=== PATIENT | female | born 1995 | race Caucasian/White ===

== ENCOUNTER 2024-01-31 00:15 | Inpatient (IN) | payer MEDICAID, SELFPAY ==
--- NOTE | 2024-01-31 02:35 | PC.ADMIT ---
PT IS A 28 YEAR OLD, K[place]AK[place] SPEAKING, , NON-BINARY INDIVIDUAL. THEY/THEM PRONOUNS. PT IS A SECTION 12B ON 15 MINUTE CHECKS. NOT APPROPRIATE FOR GROUP AT THIS TIME. PT WAS UNABLE TO ACCURATELY ANSWER ANY QUESTIONS OR PARTICIPATE IN ADMISSION DUE TO MENTAL STATUS. PT SPEECH IS DISORGANIZED AND NONSENSICAL.UPON ARRIVING TO THE UNIT, THEY REFUSED TO GET OFF THE STRETCHER UNLESS BROUGHT TO THEIR ROOM. ONCE THEY GOT TO THEIR ROOM, THEY COVERED THEIR HEAD WITH A BLANKET AND THREW THEMSELVES ONTO THE BED. PT IS DISHEVELED APPEARING. THEY HAVE A PIECE OF RIPPED PAPER TOWEL ON THEIR HEAD A HEADBAND. PT IS MALODOROUS, SMELLING LIKE URINE. THEY WERE TRANSFERRED TO [facility] AFTER BEING BROUGHT TO [email or web address] FOR THROWING ROCKS AT [employer]. PTS INSIGHT AND JUDGMENT ARE POOR. UNKNOWN SLEEPING AND EATING HABITS. REFUSED NRT. REFUSED FLU VACCINE. PT HAS HAD MULTIPLE HOSPITALIZATIONS IN THE PAST.SAFETY TOOL AND LEGALS STILL NEED TO BE COMPLETED.
[2024-01-31 07:56] VITALS: BP 142/100; PULSE 122; RESP 18; TEMP 36.5; O2SAT 95
--- NOTE | 2024-01-31 08:22 | HO.PSYADMNOT ---
HPI Date of Service: 01/31/24 Chief Complaint: F31.2, F33.2, F41.1 Sources of Information: patient interviewed, chart reviewed and crisis/core team assessment reviewed HPI Subjective Notes: Byrd Warning, Conditional Voluntary and Section 12B Narrative: Patient is a 28-year-old biological female (they/them) with history of bipolar disorder who presents with manic and disruptive behaviors in the community. Patient is floridly manic on the unit, disrobing in the hallway, dancing, throwing her panties, yelling and making noises. She was willing to take her home medication of Abilify, which helped her sleep and afterwards, though still manic, was able to engage in discussion. She says I do not want to be here. Patient says that in the community, she was not throwing rocks at [employer] workers, but was throwing items, lipstick and a receipt, saying she was trying to be sexy, hot... And something about fairies. Patient rambling about her Boy genius philosophical energy, healing, renewed trans revelation about herself... Patient reports that in the past when she had such episodes she would get paranoid and have auditory hallucinations; she was treated with Abilify in the past which helped however this takes away her creative energy and on it she would no longer do art. She has been off of it for several months. She feels that this current episode is welcomed, expanding her thoughts and something through the effect of spreading energy. Patient agrees that expressing herself in this way in public is not always welcomed and she thus agrees to continue with Abilify; she would like it lowered to see if at a lower dose it is helpful but will not take away her creative energy. Report from crisis says patient was disorganized, nonsensical, and throwing rocks at the [employer] workers. Past Psychiatric History: Difficult to ascertain due to scott; maybe 1 past admission; trial of Abilify, Risperdal (caused galactorrhea) and Vraylar Medical Evaluation Reviewed: Hospitalist Alejandra Pending [facility] Medical History (Updated 01/31/24 @ 17:55 by Warner Gay MD) Bipolar I disorder Family History: Deferred due to patient's ability to engage Social History: Has partner for the past 8 months named Andrew Substance History: Denies Trauma History: Defer Diagnostics Vital Signs (24Hr): Vital Signs - 24 hr 01/31/24 07:56 Temperature 97.7 F Pulse Rate 122 H Respiratory Rate 18 Blood Pressure 142/100 H Pulse Oximetry 95 Oxygen Delivery Method Room Air BMI result Body Mass Index 30.0 Meds/Allergies Meds Home Medications ?Medication ?Instructions ?Recorded ?Confirmed ?Type aripiprazole 20 mg tablet 20 mg PO DAILY 01/31/24 01/31/24 History dicyclomine 10 mg capsule 10 mg PO TID 01/31/24 01/31/24 History famotidine 40 mg tablet 40 mg PO DAILY 01/31/24 01/31/24 History hydroxyzine HCl 50 mg tablet 50 mg PO QID PRN Anxiety 01/31/24 01/31/24 History lamotrigine 200 mg tablet 200 mg PO DAILY 01/31/24 01/31/24 History levothyroxine 50 mcg tablet 50 mcg PO DAILY 01/31/24 01/31/24 History Allergies Allergies Allergy/AdvReac Type Severity Reaction Status Date / Time cephalexin [From Keflex] Allergy Hives Verified 01/31/24 01:43 codeine Allergy Nausea and Verified 01/31/24 01:43 Vomiting Mental Status Exam Mental Status Exam Narrative: Pt is alert and oriented; behavior is manic, exuberant, loud and intermittently disorganized; patient is not in distress; dressed in casual attire, disheveled, malodorous; mood is described as good and affect expansive; eye contact appropriate; Speech is hyperverbal and pressured, intermittently loud; psychomotor agitation present; thought process can be goal directed but is quite distracted and tangential; Thought content is on spirit, trans energy ; with grandiosity; denies any SI/HI. Denies AVH Patients insight and judgment impaired Assessment & Plan Assessment & Plan (1) Bipolar I disorder: Status: Acute Code(s): F31.9 - Bipolar disorder, unspecified Plan Patient is a 28-year-old biological female (they/them) with history of bipolar disorder who presents with manic and disruptive behaviors in the community. Patient is floridly manic on the unit, disorganized, disrobing in the hallway, dancing, throwing her panties, yelling and making noises. She was willing to take her home medication of Abilify, which helped her sleep and afterwards, though still manic, was able to engage in discussion. She says I do not want to be here. Patient says that in the community, she was not throwing rocks at [employer] workers, but was throwing items, lipstick and a receipt, saying she was trying to be sexy, hot... And something about fairies. Patient rambling about her Boy genius philosophical energy, healing, renewed trans revelation about herself... Patient reports that in the past when she had such episodes she would get paranoid and have auditory hallucinations; she was treated with Abilify in the past which helped however this takes away her creative energy and on it she would no longer do art. She has been off of it for several months. She feels that this current episode is welcomed, expanding her thoughts and something through the effect of spreading energy. Patient agrees that expressing herself in this way in public is not always welcomed and she thus agrees to continue with Abilify; she would like it lowered to see if at a lower dose it is helpful but will not take away her creative energy. -Report from crisis says patient was disorganized, nonsensical, and throwing rocks at the [employer] workers. Impression: Patient is clearly manic; she is happy though because this episode has not included any auditory hallucinations or paranoid delusions which she very much did not like. She agrees to restart Abilify though at a slightly lower dose, 15 mg. She says she will try to demonstrate appropriate behaviors as she wants to discharge christopher. Reviewed legal status which patient understands and she remains on a 12 B, not wanting to sign it Plan: 12 B Continue Abilify 15 mg daily; patient normally on 20 but feels it is too high and makes her dull Patient educated on: diagnosis and medication risk/benefits Informed Consent: understands, does not understand and further education needed Reason for continued inpatient stay Substantial Risk for: rapid decompensation Statement Statement: I have reviewed the history and physical and performed a pertinent examination on my patient. No changes have occurred unless specified. If the History and Physical was not performed prior to admission, the Hospitalist's service will be consulted for completing the admission physical. Time Spent With Patient Time: Total time managing care of this patient today ____ minutes.
[2024-01-31] MEDS: OLANZapine 5 MG TABLET PO (09:12)
[2024-01-31] MEDS: Famotidine 20 MG TABLET 40 MG PO (09:12)
[2024-01-31] MEDS: ARIPiprazole 20 MG TABLET PO (09:12)
--- NOTE | 2024-01-31 13:31 | HO.PM.IMCN ---
History of Present Illness Data of Consult Service Date: 01/31/24 Primary Care Provider: Annalise Ortez NP HPI Reason for consult: Admission H&P Pt is a 28-year-old nonbinary assigned female at with a PMH significant for?hypothyroidism, MDD, ARNOL, and bipolar disorder who is admitted to M5 psychiatry unit for disorganized behavior. Patient was initially brought to [facility] ED after police department picked them up for throwing rocks at [employer] workers. While on the unit here patient has been actively manic, refusing to participate in treatment and with poor insight and judgment. Patient has been moved to the group room to rest in seclusion. Medical consult for admission H&P. Pt initially reluctant to conduct interview and exam, but eventually agrees to participate. Is actively manic and speaking nonsensically and incoherently at times. Unable to provide a clear PMH. Reports has ?lots of heart stuff? and when asked to clarify reports their heart is ?like a pin cushion?. Patient denies any acute medical complaints at this time. Review of Systems Review of Systems: Patient actively manic at time of interview and exam, though they deny any acute medical complaints at this time [facility] Medical History (Updated 01/31/24 @ 19:45 by JERRELL Navarro) Bipolar I disorder Social History Household Members: Unknown / Unable to assess Housing: Unknown / Unable to assess Do you presently have visiting nurse or other home services: No Patient Tobacco Use Status: Refuse Tobacco use screen Patient Interested in Nicotine Replacement: No Patient Given Instructions on How to Stop Smoking: No Second Hand Smoke Exposure: No Use of substances other than those prescribed or required for medical reasons: Refusing to respond Currently Displaying Signs/Symptoms of Drug Intoxication Withdrawal: No Any prior treatment program specific to substance use: No Advance Directives: No Advance Directives Information Provided: No Do you have thoughts of harming others: None Do you have a plan to hurt others: No Plan Recently lost weight without trying: Unsure Eating poorly because of decreased appetite: Yes Nutrition Risks: No Nutritional Risk Patient : No : No Poor oral hygiene: No Meds Allergies Allergy/AdvReac Type Severity Reaction Status Date / Time cephalexin [From Keflex] Allergy Hives Verified 01/31/24 01:43 codeine Allergy Nausea and Verified 01/31/24 01:43 Vomiting Active Medications: Current Medications Acetaminophen (Acetaminophen 325 Mg Tablet) 650 mg PO Q6H PRN PRN Reason: Headache/Pain Mild Scale (1-3) Al Hydroxide/Mg Hydroxide (Magnesium Hydrox/Alum Hydrox 30 Ml Oral.Susp) 30 ml PO Q6H PRN PRN Reason: Heartburn/Nausea Aripiprazole (Aripiprazole 20 Mg Tablet) 20 mg PO DAILY [facility] Last Admin: 01/31/24 09:12 Dose: 20 mg Famotidine (Famotidine 20 Mg Tablet) 40 mg PO DAILY [facility] Last Admin: 01/31/24 09:12 Dose: 40 mg Hydroxyzine HCl (Hydroxyzine Hcl 50 Mg Tablet) 50 mg PO QID PRN PRN Reason: Anxiety Magnesium Hydroxide (Milk Of Magnesia 30 Ml Oral.Susp) 30 ml PO DAILY PRN PRN Reason: Constipation Nicotine (Nicotine 21 Mg Patch.Td24) 21 mg TRANSDERMA DAILY PRN PRN Reason: smoking cessation Nicotine Polacrilex (Nicotine Polacrilex 2 Mg Gum) 4 mg BUCCAL Q2H PRN PRN Reason: Nicotine Cravings Olanzapine (Olanzapine 5 Mg Tablet) 5 mg PO TID PRN PRN Reason: agitation Last Admin: 01/31/24 09:12 Dose: 5 mg Trazodone HCl (Trazodone Hcl 50 Mg Tablet) 50 mg PO BEDTIME MRX1 PRN PRN Reason: Insomnia Home Medications ?Medication ?Instructions ?Recorded ?Confirmed ?Last Taken ?Type aripiprazole 20 mg tablet 20 mg PO DAILY 01/31/24 01/31/24 Unknown History dicyclomine 10 mg capsule 10 mg PO TID 01/31/24 01/31/24 Unknown History famotidine 40 mg tablet 40 mg PO DAILY 01/31/24 01/31/24 Unknown History hydroxyzine HCl 50 mg tablet 50 mg PO QID PRN Anxiety 01/31/24 01/31/24 Unknown History lamotrigine 200 mg tablet 200 mg PO DAILY 01/31/24 01/31/24 Unknown History levothyroxine 50 mcg tablet 50 mcg PO DAILY 01/31/24 01/31/24 Unknown History Physical Exam Vital Signs and Narrative: Vital Signs: Last Vital Signs Temp 97.7 F 01/31/24 07:56 Pulse 122 H 01/31/24 07:56 Resp 18 01/31/24 07:56 BP 142/100 H 01/31/24 07:56 Pulse Ox 95 01/31/24 07:56 O2 Del Method Room Air 01/31/24 07:56 BMI result Body Mass Index 30.0 General: Alert, actively manic, no acute distress Resp: CTA bilaterally CVS: S1, S2, RRR GI: +BS, NT, no distention Skin: Warm, dry Neuro: Cranial nerves II-XII grossly intact bilaterally. Motor grossly intact bilaterally Extremities: No edema Psych: Actively manic but cooperative Assessment and Plan (1) Medical clearance for psychiatric admission: Status: Acute Plan Pt is a 28-year-old nonbinary assigned female at with a PMH significant for?hypothyroidism, MDD, ARNOL, and bipolar disorder who is admitted to psychiatry unit for disorganized behavior. Patient was initially brought to [facility] ED after police department picked them up for throwing rocks at [employer] workers. While on the unit here patient has been actively manic, refusing to participate in treatment and with poor insight and judgment. Patient has been moved to the group room to rest in seclusion. Medical consult for admission H&P. Mood disorder Plan as per Psychiatry Hypothyroidism Continue levothyroxine GERD Continue famotidine Patient is otherwise without acute medical complaints or known chronic medical conditions. Will sign off for now. Thank you for allowing us to participate in the care of this patient. Please re-consult if any acute issue or need arises.
[2024-01-31] MEDS: Nicotine Polacrilex 2 MG GUM 4 MG BUCCAL (17:19)
[2024-01-31 20:00] VITALS: BP 136/75; PULSE 103; RESP 16; TEMP 35.9; O2SAT 97
[2024-02-01 07:54] VITALS: BP 138/87; PULSE 121; RESP 16; TEMP 36.4; O2SAT 98
[2024-02-01] MEDS: Famotidine 20 MG TABLET 40 MG PO (09:00)
[2024-02-01] MEDS: ARIPiprazole 15 MG TABLET PO (09:00)
[2024-02-01] MEDS: OLANZapine 5 MG TABLET PO (09:01)
[2024-02-01] MEDS: Nicotine 21 MG PATCH.TD24 TRANSDERMA (09:25)
[2024-02-01] MEDS: Nicotine Polacrilex 2 MG GUM 4 MG BUCCAL ×3 (10:46→17:44)
--- NOTE | 2024-02-01 15:18 | HO.PSYCHPN ---
Subjective Subjective Date of Service: 02/01/24 Reason For Visit: F31.2, F33.2, F41.1 Interim History: Remains disorganized and euphoric and manic although hasn't been disrobing. She was seen in her room. I wish I could have a joint with my girlfriend right now. She says she is feeling out from my darkest place. Feels the Abilify is helpful I will try it when I go home . She is pressured. Mood is elated I'm very calm... . Hyperverbal. Tangential. Review of Systems Review of Systems Patient actively manic at time of interview and exam, though they deny any acute medical complaints at this time Mental Status Exam Mental Status Exam Narrative: Pt is alert and oriented; behavior is manic, exuberant, loud and intermittently disorganized; patient is not in distress; dressed in casual attire, disheveled, malodorous; mood is described as good and affect expansive; eye contact appropriate; Speech is hyperverbal and pressured, intermittently loud; psychomotor agitation present; thought process can be goal directed but is quite distracted and tangential; Thought content is on spirit, trans energy ; with grandiosity; denies any SI/HI. Denies AVH Patients insight and judgment impaired Diagnostics Vital Signs (24Hr): Vital Signs - 24 hr 01/31/24 20:00 02/01/24 07:54 Temperature 96.6 F L 97.5 F Pulse Rate 103 H 121 H Respiratory Rate 16 16 Blood Pressure 136/75 138/87 Pulse Oximetry 97 98 Oxygen Delivery Method Room Air Room Air BMI result Body Mass Index 30.0 Medications Medications Current Medications Acetaminophen (Acetaminophen 325 Mg Tablet) 650 mg PO Q6H PRN PRN Reason: Headache/Pain Mild Scale (1-3) Al Hydroxide/Mg Hydroxide (Magnesium Hydrox/Alum Hydrox 30 Ml Oral.Susp) 30 ml PO Q6H PRN PRN Reason: Heartburn/Nausea Aripiprazole (Aripiprazole 15 Mg Tablet) 15 mg PO DAILY [facility] Last Admin: 02/01/24 09:00 Dose: 15 mg Famotidine (Famotidine 20 Mg Tablet) 40 mg PO DAILY [facility] Last Admin: 02/01/24 09:00 Dose: 40 mg Hydroxyzine HCl (Hydroxyzine Hcl 50 Mg Tablet) 50 mg PO QID PRN PRN Reason: Anxiety Magnesium Hydroxide (Milk Of Magnesia 30 Ml Oral.Susp) 30 ml PO DAILY PRN PRN Reason: Constipation Nicotine (Nicotine 21 Mg Patch.Td24) 21 mg TRANSDERMA DAILY PRN PRN Reason: smoking cessation Last Admin: 02/01/24 09:25 Dose: 21 mg Nicotine Polacrilex (Nicotine Polacrilex 2 Mg Gum) 4 mg BUCCAL Q2H PRN PRN Reason: Nicotine Cravings Last Admin: 02/01/24 14:12 Dose: 4 mg Olanzapine (Olanzapine 5 Mg Tablet) 5 mg PO TID PRN PRN Reason: agitation Last Admin: 02/01/24 09:01 Dose: 5 mg Trazodone HCl (Trazodone Hcl 50 Mg Tablet) 50 mg PO BEDTIME MRX1 PRN PRN Reason: Insomnia Allergies Allergies Allergy/AdvReac Type Severity Reaction Status Date / Time cephalexin [From Keflex] Allergy Hives Verified 01/31/24 01:43 codeine Allergy Nausea and Verified 01/31/24 01:43 Vomiting Assessment & Plan Assessment & Plan (1) Medical clearance for psychiatric admission: Status: Acute Code(s): Z00.8 - Encounter for other general examination (2) Bipolar I disorder: Status: Acute Code(s): F31.9 - Bipolar disorder, unspecified Assessment and Plan: Patient is a 28-year-old biological female (they/them) with history of bipolar disorder who presents with manic and disruptive behaviors in the community. Patient is floridly manic on the unit, disorganized, disrobing in the hallway, dancing, throwing her panties, yelling and making noises. She was willing to take her home medication of Abilify, which helped her sleep and afterwards, though still manic, was able to engage in discussion. She says I do not want to be here. Patient says that in the community, she was not throwing rocks at [employer] workers, but was throwing items, lipstick and a receipt, saying she was trying to be sexy, hot... And something about fairies. Patient rambling about her Boy genius philosophical energy, healing, renewed trans revelation about herself... Patient reports that in the past when she had such episodes she would get paranoid and have auditory hallucinations; she was treated with Abilify in the past which helped however this takes away her creative energy and on it she would no longer do art. She has been off of it for several months. She feels that this current episode is welcomed, expanding her thoughts and something through the effect of spreading energy. Patient agrees that expressing herself in this way in public is not always welcomed and she thus agrees to continue with Abilify; she would like it lowered to see if at a lower dose it is helpful but will not take away her creative energy. -Report from crisis says patient was disorganized, nonsensical, and throwing rocks at the [employer] workers. Impression: Patient is clearly manic; she is happy though because this episode has not included any auditory hallucinations or paranoid delusions which she very much did not like. She agrees to restart Abilify though at a slightly lower dose, 15 mg. She says she will try to demonstrate appropriate behaviors as she wants to discharge christopher. Reviewed legal status which patient understands and she remains on a 12 B, not wanting to sign it Plan: 12 B Continue Abilify 15 mg daily; patient normally on 20 but feels it is too high and makes her dull 01/31: Continue current management and treatment plan. Plan Pt is a 28-year-old nonbinary assigned female at with a PMH significant for?hypothyroidism, MDD, ARNOL, and bipolar disorder who is admitted to M5 psychiatry unit for disorganized behavior. Patient was initially brought to [facility] ED after police department picked them up for throwing rocks at [employer] workers. While on the unit here patient has been actively manic, refusing to participate in treatment and with poor insight and judgment. Patient has been moved to the group room to rest in seclusion. Medical consult for admission H&P. Mood disorder Plan as per Psychiatry Hypothyroidism Continue levothyroxine GERD Continue famotidine Patient is otherwise without acute medical complaints or known chronic medical conditions. Will sign off for now. Thank you for allowing us to participate in the care of this patient. Please re-consult if any acute issue or need arises. Reason for continued inpatient stay Substantial Risk for: inability to function and rapid decompensation Time Spent With Patient Time: Total time managing care of this patient today ____ minutes.
[2024-02-01] MEDS: Lactase TABLET 1 TAB PO (17:44)
[2024-02-01] MEDS: Magnesium Hydrox/Alum Hydrox 30 ML ORAL.SUSP PO (17:44)
[2024-02-01 20:00] VITALS: BP 148/84; PULSE 109; RESP 18; TEMP 36.7; O2SAT 98
[2024-02-02] MEDS: OLANZapine 5 MG TABLET PO (00:43)
[2024-02-02] MEDS: hydrOXYzine HCL 50 MG TABLET PO ×3 (00:43→23:15)
[2024-02-02] MEDS: Nicotine Polacrilex 2 MG GUM 4 MG BUCCAL ×5 (00:43→21:14)
[2024-02-02] MEDS: diphenhydrAMINE HCL 25 MG CAPSULE 50 MG PO (02:03)
[2024-02-02] MEDS: LORazepam 1 MG TABLET 2 MG PO (02:04)
[2024-02-02] MEDS: HaloperidoL 5 MG TABLET PO (02:05)
--- NOTE | 2024-02-02 02:41 | PC.NURSE ---
This patient became agitated at approximately 2200. They were noted to be apparently making gestures toward peers in the kitchen area, whilst they were outside of the kitchen windows, and had to be redirected repeatedly. They were swearing loudly at times when redirection occurred. Around 2300, the patient began balling up papers and throwing them into the nurse's station, and repeatedly asked for various things (a radio, for staff to play her music, copies of her current medical charts for this admission, colored pencils, etc) and was upset when their requests could not be satisfied. At approximately 0030, they threw a full pitcher of ice water down the (empty) jacobs and starting telling staff you suck, you guys are dicks! Fuck you, and you, and you! This continued, so this proposal manager writer ayan texted the on-call requesting PRNs as the patient had already had Zyprexa and Atarax to no effect. at home independent call center agent Dr Hector Patel ordered a one time PO dose of 50 mg Benedryl, 5 mg of Haldol, and 2 mg of Ativan. The patient took the Benedryl, Haldol, but requested only 1 mg of the Ativan. This was administered to good effect, as the patient appeared to be asleep by 0248. At the time of this writing, they are in bed with eyes closed and regular respirations.
[2024-02-02] MEDS: Famotidine 20 MG TABLET 40 MG PO (08:41)
[2024-02-02] MEDS: Lactase TABLET 1 TAB PO ×2 (08:42→11:24)
[2024-02-02] MEDS: ARIPiprazole 15 MG TABLET PO (08:42)
[2024-02-02] MEDS: Nicotine 21 MG PATCH.TD24 TRANSDERMA (08:43)
--- NOTE | 2024-02-02 09:43 | P.PNPSI_ITS ---
Subjective Subjective Date of Service: 02/02/24 Reason For Visit: F31.2, F33.2, F41.1 Interim History: Increasingly disorganized and agitated. Last night required PRN Haldol and Ativan with little effect. This morning yelling, agitated, saying they are praying to the garcia, lifting their shirt, smearing banana on a window, pacing. Taking Abilify. Hyperverbal. Tangential. Review of Systems Review of Systems Patient actively manic at time of interview and exam, though they deny any acute medical complaints at this time Mental Status Exam Mental Status Exam Narrative: Pt is alert and oriented; behavior is manic, exuberant, loud and intermittently disorganized; patient is not in distress; dressed in casual attire, disheveled, malodorous; mood is angry and affect expansive irritable agitated; eye contact appropriate; Speech is hyperverbal and pressured, intermittently loud; psychomotor agitation present; thought process can be goal directed but is quite distracted and tangential; Thought content is disorganized; with grandiosity; denies any SI/HI. Denies AVH. Patients insight and judgment impaired Diagnostics Vital Signs (24Hr): Vital Signs - 24 hr 02/01/24 20:00 Temperature 98.0 F Pulse Rate 109 H Respiratory Rate 18 Blood Pressure 148/84 H Pulse Oximetry 98 Oxygen Delivery Method Room Air BMI result Body Mass Index 30.0 Medications Medications Current Medications Acetaminophen (Acetaminophen 325 Mg Tablet) 650 mg PO Q6H PRN PRN Reason: Headache/Pain Mild Scale (1-3) Al Hydroxide/Mg Hydroxide (Magnesium Hydrox/Alum Hydrox 30 Ml Oral.Susp) 30 ml PO Q6H PRN PRN Reason: Heartburn/Nausea Last Admin: 02/01/24 17:44 Dose: 30 ml Aripiprazole (Aripiprazole 15 Mg Tablet) 15 mg PO DAILY DAYANA Last Admin: 02/02/24 08:42 Dose: 15 mg Chlorpromazine HCl (Chlorpromazine Hcl 25 Mg Tablet) 50 mg PO TID PRN PRN Reason: psychosis Famotidine (Famotidine 20 Mg Tablet) 40 mg PO DAILY DAYANA Last Admin: 02/02/24 08:41 Dose: 40 mg Hydroxyzine HCl (Hydroxyzine Hcl 50 Mg Tablet) 50 mg PO QID PRN PRN Reason: Anxiety Last Admin: 02/02/24 00:43 Dose: 50 mg Lactase (Lactase Tablet) 1 tab PO TIDWM DAYANA Last Admin: 02/02/24 08:42 Dose: 1 tab Magnesium Hydroxide (Milk Of Magnesia 30 Ml Oral.Susp) 30 ml PO DAILY PRN PRN Reason: Constipation Nicotine (Nicotine 21 Mg Patch.Td24) 21 mg TRANSDERMA DAILY PRN PRN Reason: smoking cessation Last Admin: 02/02/24 08:43 Dose: 21 mg Nicotine Polacrilex (Nicotine Polacrilex 2 Mg Gum) 4 mg BUCCAL Q2H PRN PRN Reason: Nicotine Cravings Last Admin: 02/02/24 00:43 Dose: 4 mg Olanzapine (Olanzapine 5 Mg Tablet) 5 mg PO TID PRN PRN Reason: agitation Last Admin: 02/02/24 00:43 Dose: 5 mg Trazodone HCl (Trazodone Hcl 50 Mg Tablet) 50 mg PO BEDTIME MRX1 PRN PRN Reason: Insomnia Allergies Allergies Allergy/AdvReac Type Severity Reaction Status Date / Time cephalexin [From Keflex] Allergy Hives Verified 01/31/24 01:43 codeine Allergy Nausea and Verified 01/31/24 01:43 Vomiting Assessment & Plan Assessment & Plan (1) Medical clearance for psychiatric admission: Status: Acute Code(s): Z00.8 - Encounter for other general examination (2) Bipolar I disorder: Status: Acute Code(s): F31.9 - Bipolar disorder, unspecified Assessment and Plan: Patient is a 28-year-old biological female (they/them) with history of bipolar disorder who presents with manic and disruptive behaviors in the community. Patient is floridly manic on the unit, disorganized, disrobing in the hallway, dancing, throwing her panties, yelling and making noises. She was willing to take her home medication of Abilify, which helped her sleep and afterwards, though still manic, was able to engage in discussion. She says I do not want to be here. Patient says that in the community, she was not throwing rocks at [employer] workers, but was throwing items, lipstick and a receipt, saying she was trying to be sexy, hot... And something about fairies. Patient rambling about her Boy genius philosophical energy, healing, renewed trans revelation about herself... Patient reports that in the past when she had such episodes she would get paranoid and have auditory hallucinations; she was treated with Abilify in the past which helped however this takes away her creative energy and on it she would no longer do art. She has been off of it for several months. She feels that this current episode is welcomed, expanding her thoughts and something through the effect of spreading energy. Patient agrees that expressing herself in this way in public is not always welcomed and she thus agrees to continue with Abilify; she would like it lowered to see if at a lower dose it is helpful but will not take away her creative energy. -Report from crisis says patient was disorganized, nonsensical, and throwing rocks at the [employer] workers. Impression: Patient is clearly manic; she is happy though because this episode has not included any auditory hallucinations or paranoid delusions which she very much did not like. She agrees to restart Abilify though at a slightly lower dose, 15 mg. She says she will try to demonstrate appropriate behaviors as she wants to discharge christopher. Reviewed legal status which patient understands and she remains on a 12 B, not wanting to sign it Plan: 12 B Continue Abilify 15 mg daily; patient normally on 20 but feels it is too high and makes her dull 01/31: Continue current management and treatment plan. 02/01: Thorazine 50 mg PRN added. Consider Depakote if patient agreeable. Plan Pt is a 28-year-old nonbinary assigned female at with a PMH significant for?hypothyroidism, MDD, ARNOL, and bipolar disorder who is admitted to [facility] psychiatry unit for disorganized behavior. Patient was initially brought to [facility] ED after police department picked them up for throwing rocks at [employer] workers. While on the unit here patient has been actively manic, refusing to participate in treatment and with poor insight and judgment. Patient has been moved to the group room to rest in seclusion. Medical consult for admission H&P. Mood disorder Plan as per Psychiatry Hypothyroidism Continue levothyroxine GERD Continue famotidine Patient is otherwise without acute medical complaints or known chronic medical conditions. Will sign off for now. Thank you for allowing us to participate in the care of this patient. Please re-consult if any acute issue or need arises. Reason for continued inpatient stay Substantial Risk for: inability to function and rapid decompensation Time Spent With Patient Time: Total time managing care of this patient today ____ minutes.
[2024-02-02 19:50] VITALS: BP 138/88; PULSE 103; RESP 18; TEMP 36.3; O2SAT 97
[2024-02-02] MEDS: Acetaminophen 325 MG TABLET 650 MG PO (20:08)
[2024-02-02] MEDS: chlorproMAZINE HCl 25 MG TABLET 50 MG PO ×2 (21:14→23:15)
[2024-02-02] MEDS: traZODone HCL 50 MG TABLET PO (21:14)
[2024-02-02] MEDS: LORazepam 1 MG TABLET PO (23:15)
--- NOTE | 2024-02-03 08:28 | P.PNPSI_ITS ---
Subjective Subjective Date of Service: 02/03/24 Reason For Visit: F31.2, F33.2, F41.1 Interim History: Met with patient; discussed with team Patient remains manic, intermittently singing, yelling on the unit, mildly intrusive with peers but redirects herself. Grandmother visited today who reports no dangerousness but agrees that patient struggles to adequately care for her bipolar disorder. Patient agrees to increasing Abilify to 20 mg and to starting Depakote; risks/side effects reviewed and patient given handout regarding medication risks. She refuses to sign in and remains on a 12 B, wanting to leave. Patient plans to go stay at her partner's Mental Status Exam Mental Status Exam Narrative: Pt is alert and oriented; behavior is manic, exuberant, loud and intermittently disorganized; patient is not in distress; dressed in casual attire, disheveled; mood is expansive as is affect which can also be irritable agitated; eye contact appropriate; Speech is hyperverbal and pressured, intermittently loud; intermittent psychomotor agitation present; thought process can be goal directed but also distracted; Thought content is on discharge and various other issues; with grandiosity; denies any SI/HI. Denies AVH. Patients insight and judgment impaired Diagnostics Vital Signs (24Hr): Vital Signs - 24 hr 02/02/24 19:50 Temperature 97.3 F Pulse Rate 103 H Respiratory Rate 18 Blood Pressure 138/88 Pulse Oximetry 97 Oxygen Delivery Method Room Air BMI result Body Mass Index 30.0 Medications Medications Current Medications Acetaminophen (Acetaminophen 325 Mg Tablet) 650 mg PO Q6H PRN PRN Reason: Headache/Pain Mild Scale (1-3) Last Admin: 02/02/24 20:08 Dose: 650 mg Al Hydroxide/Mg Hydroxide (Magnesium Hydrox/Alum Hydrox 30 Ml Oral.Susp) 30 ml PO Q6H PRN PRN Reason: Heartburn/Nausea Last Admin: 02/01/24 17:44 Dose: 30 ml Aripiprazole (Aripiprazole 15 Mg Tablet) 15 mg PO DAILY DAYANA Last Admin: 02/02/24 08:42 Dose: 15 mg Chlorpromazine HCl (Chlorpromazine Hcl 25 Mg Tablet) 50 mg PO TID PRN PRN Reason: psychosis Last Admin: 02/02/24 21:14 Dose: 50 mg Famotidine (Famotidine 20 Mg Tablet) 40 mg PO DAILY [facility] Last Admin: 02/02/24 08:41 Dose: 40 mg Hydroxyzine HCl (Hydroxyzine Hcl 50 Mg Tablet) 50 mg PO QID PRN PRN Reason: Anxiety Last Admin: 02/02/24 23:15 Dose: 50 mg Lactase (Lactase Tablet) 1 tab PO TIDWM DAYANA Last Admin: 02/02/24 16:40 Dose: Not Given Magnesium Hydroxide (Milk Of Magnesia 30 Ml Oral.Susp) 30 ml PO DAILY PRN PRN Reason: Constipation Nicotine (Nicotine 21 Mg Patch.Td24) 21 mg TRANSDERMA DAILY PRN PRN Reason: smoking cessation Last Admin: 02/02/24 08:43 Dose: 21 mg Nicotine Polacrilex (Nicotine Polacrilex 2 Mg Gum) 4 mg BUCCAL Q2H PRN PRN Reason: Nicotine Cravings Last Admin: 02/02/24 21:14 Dose: 4 mg Olanzapine (Olanzapine 5 Mg Tablet) 5 mg PO TID PRN PRN Reason: agitation Last Admin: 02/02/24 00:43 Dose: 5 mg Trazodone HCl (Trazodone Hcl 50 Mg Tablet) 50 mg PO BEDTIME MRX1 PRN PRN Reason: Insomnia Last Admin: 02/02/24 21:14 Dose: 50 mg Allergies Allergies Allergy/AdvReac Type Severity Reaction Status Date / Time cephalexin [From Keflex] Allergy Hives Verified 01/31/24 01:43 codeine Allergy Nausea and Verified 01/31/24 01:43 Vomiting Assessment & Plan Assessment & Plan (1) Medical clearance for psychiatric admission: Status: Acute Code(s): Z00.8 - Encounter for other general examination (2) Bipolar I disorder: Status: Acute Code(s): F31.9 - Bipolar disorder, unspecified Assessment and Plan: Patient is a 28-year-old biological female (they/them) with history of bipolar disorder who presents with manic and disruptive behaviors in the community. Patient is floridly manic on the unit, disorganized, disrobing in the hallway, dancing, throwing her panties, yelling and making noises. She was willing to take her home medication of Abilify, which helped her sleep and afterwards, though still manic, was able to engage in discussion. She says I do not want to be here. Patient says that in the community, she was not throwing rocks at [employer] workers, but was throwing items, lipstick and a receipt, saying she was trying to be sexy, hot... And something about fairies. Patient rambling about her Boy genius philosophical energy, healing, renewed trans revelation about herself... Patient reports that in the past when she had such episodes she would get paranoid and have auditory hallucinations; she was treated with Abilify in the past which helped however this takes away her creative energy and on it she would no longer do art. She has been off of it for several months. She feels that this current episode is welcomed, expanding her thoughts and something through the effect of spreading energy. Patient agrees that expressing herself in this way in public is not always welcomed and she thus agrees to continue with Abilify; she would like it lowered to see if at a lower dose it is helpful but will not take away her creative energy. -Report from crisis says patient was disorganized, nonsensical, and throwing rocks at the [employer] workers. Impression: Patient is clearly manic; she is happy though because this episode has not included any auditory hallucinations or paranoid delusions which she very much did not like. She agrees to restart Abilify though at a slightly lower dose, 15 mg. She says she will try to demonstrate appropriate behaviors as she wants to discharge christopher. Reviewed legal status which patient understands and she remains on a 12 B, not wanting to sign it 01/31: Continue current management and treatment plan. 02/01: Thorazine 50 mg PRN added. Consider Depakote if patient agreeable. 02/02 patient acknowledges that she has manic episodes and though she does not necessarily think she has bipolar disorder, agrees that manic episodes can be troublesome and says she does agree to medication. As patient remains manic she agrees to increasing Abilify back to 20 mg and getting on Depakote; grandmother present who knows patient well and agrees the patient is not a danger to herself or others though worries about her poorly treated bipolar disorder; patient refuses to sign in and says she will discharge to live with her partner - Plan: 12 B Increase Abilify to 20 mg Start Depakote extended release 5 mg q.h.s. Will order labs Plan Pt is a 28-year-old nonbinary assigned female at with a PMH significant for?hypothyroidism, MDD, ARNOL, and bipolar disorder who is admitted to [facility] psychiatry unit for disorganized behavior. Patient was initially brought to [facility] ED after police department picked them up for throwing rocks at [employer] workers. While on the unit here patient has been actively manic, refusing to participate in treatment and with poor insight and judgment. Patient has been moved to the group room to rest in seclusion. Medical consult for admission H&P. Mood disorder Plan as per Psychiatry Hypothyroidism Continue levothyroxine GERD Continue famotidine Patient is otherwise without acute medical complaints or known chronic medical conditions. Will sign off for now. Thank you for allowing us to participate in the care of this patient. Please re-consult if any acute issue or need arises. Patient educated on: diagnosis, medication risk/benefits and therapeutic strategies Informed Consent: understands, does not understand and further education needed Reason for continued inpatient stay Substantial Risk for: rapid decompensation Time Spent With Patient Time: Total time managing care of this patient today ____ minutes.
[2024-02-03 09:15] VITALS: BP 137/81; PULSE 91; TEMP 36.3; O2SAT 98
[2024-02-03] MEDS: Lactase TABLET 1 TAB PO ×2 (09:19→11:56)
[2024-02-03] MEDS: Famotidine 20 MG TABLET 40 MG PO (09:20)
[2024-02-03] MEDS: ARIPiprazole 15 MG TABLET PO (09:22)
[2024-02-03] MEDS: Nicotine Polacrilex 2 MG GUM 4 MG BUCCAL ×3 (11:56→23:41)
[2024-02-03] MEDS: Nicotine 21 MG PATCH.TD24 TRANSDERMA (11:56)
[2024-02-03 20:00] VITALS: BP 155/91; PULSE 110; RESP 14; TEMP 36.3; O2SAT 96
[2024-02-03] MEDS: chlorproMAZINE HCl 25 MG TABLET 50 MG PO (20:49)
[2024-02-03] MEDS: hydrOXYzine HCL 50 MG TABLET PO (20:49)
[2024-02-03] MEDS: traZODone HCL 50 MG TABLET PO (20:49)
[2024-02-03] MEDS: Divalproex Sodium ER 250 MG TAB.ER.24H 750 MG PO (20:49)
[2024-02-04] MEDS: Acetaminophen 325 MG TABLET 650 MG PO ×2 (00:32→14:03)
[2024-02-04] MEDS: hydrOXYzine HCL 50 MG TABLET PO ×2 (07:07→18:58)
[2024-02-04] MEDS: Famotidine 20 MG TABLET 40 MG PO (07:07)
[2024-02-04] MEDS: Lactase TABLET 1 TAB PO ×3 (07:07→18:15)
[2024-02-04] MEDS: ARIPiprazole 20 MG TABLET PO (07:08)
[2024-02-04] MEDS: chlorproMAZINE HCl 25 MG TABLET 50 MG PO ×2 (07:08→17:03)
[2024-02-04 07:59] VITALS: BP 133/69; PULSE 97; RESP 18; TEMP 36.1; O2SAT 98
[2024-02-04] MEDS: Nicotine 21 MG PATCH.TD24 TRANSDERMA (08:59)
--- NOTE | 2024-02-04 17:47 | P.PNPSI_ITS ---
Subjective Subjective Date of Service: 02/04/24 Reason For Visit: F31.2, F33.2, F41.1 Interim History: Met with patient; discussed with team Same presentation; has remained compliant with medication including additional Depakote. She said it caused no problems and agrees to continue taking it. She actually said she feels that this combination of medications, Abilify 20 and Depakote are helpful. She continues to remain focused on discharge tomorrow Mental Status Exam Mental Status Exam Narrative: Pt is alert and oriented; behavior is manic, exuberant, loud and intermittently disorganized; patient is not in distress; dressed in casual attire, disheveled; mood is expansive as is affect which can also be irritable agitated; eye contact appropriate; Speech is hyperverbal and pressured, intermittently loud; intermittent psychomotor agitation present; thought process can be goal directed but also distracted; Thought content is on discharge and various other issues; with grandiosity; denies any SI/HI. Denies AVH. Patients insight and judgment impaired but adequate Diagnostics Vital Signs (24Hr): Vital Signs - 24 hr 02/03/24 20:00 02/04/24 07:59 Temperature 97.4 F 96.9 F Pulse Rate 110 H 97 Respiratory Rate 14 18 Blood Pressure 155/91 H 133/69 Pulse Oximetry 96 98 Oxygen Delivery Method Room Air Room Air BMI result Body Mass Index 30.0 Medications Medications Current Medications Acetaminophen (Acetaminophen 325 Mg Tablet) 650 mg PO Q6H PRN PRN Reason: Headache/Pain Mild Scale (1-3) Last Admin: 02/04/24 14:03 Dose: 650 mg Al Hydroxide/Mg Hydroxide (Magnesium Hydrox/Alum Hydrox 30 Ml Oral.Susp) 30 ml PO Q6H PRN PRN Reason: Heartburn/Nausea Last Admin: 02/01/24 17:44 Dose: 30 ml Aripiprazole (Aripiprazole 20 Mg Tablet) 20 mg PO DAILY [facility] Last Admin: 02/04/24 07:08 Dose: 20 mg Chlorpromazine HCl (Chlorpromazine Hcl 25 Mg Tablet) 50 mg PO TID PRN PRN Reason: psychosis Last Admin: 02/04/24 17:03 Dose: 50 mg Divalproex Sodium (Divalproex Sodium Er 250 Mg Tab.Er.24h) 750 mg PO BEDTIME DAYANA Last Admin: 02/03/24 20:49 Dose: 750 mg Famotidine (Famotidine 20 Mg Tablet) 40 mg PO DAILY [facility] Last Admin: 02/04/24 07:07 Dose: 40 mg Hydroxyzine HCl (Hydroxyzine Hcl 50 Mg Tablet) 50 mg PO QID PRN PRN Reason: Anxiety Last Admin: 02/04/24 07:07 Dose: 50 mg Lactase (Lactase Tablet) 1 tab PO TIDWM [facility] Last Admin: 02/04/24 12:46 Dose: 1 tab Magnesium Hydroxide (Milk Of Magnesia 30 Ml Oral.Susp) 30 ml PO DAILY PRN PRN Reason: Constipation Nicotine (Nicotine 21 Mg Patch.Td24) 21 mg TRANSDERMA DAILY PRN PRN Reason: smoking cessation Last Admin: 02/04/24 08:59 Dose: 21 mg Nicotine Polacrilex (Nicotine Polacrilex 2 Mg Gum) 4 mg BUCCAL Q2H PRN PRN Reason: Nicotine Cravings Last Admin: 02/03/24 23:41 Dose: 4 mg Olanzapine (Olanzapine 5 Mg Tablet) 5 mg PO TID PRN PRN Reason: agitation Last Admin: 02/02/24 00:43 Dose: 5 mg Trazodone HCl (Trazodone Hcl 50 Mg Tablet) 50 mg PO BEDTIME MRX1 PRN PRN Reason: Insomnia Last Admin: 02/03/24 20:49 Dose: 50 mg Allergies Allergies Allergy/AdvReac Type Severity Reaction Status Date / Time cephalexin [From Keflex] Allergy Hives Verified 01/31/24 01:43 codeine Allergy Nausea and Verified 01/31/24 01:43 Vomiting Assessment & Plan Assessment & Plan (1) Medical clearance for psychiatric admission: Status: Acute Code(s): Z00.8 - Encounter for other general examination (2) Bipolar I disorder: Status: Acute Code(s): F31.9 - Bipolar disorder, unspecified Assessment and Plan: Patient is a 28-year-old biological female (they/them) with history of bipolar disorder who presents with manic and disruptive behaviors in the community. Patient is floridly manic on the unit, disorganized, disrobing in the hallway, dancing, throwing her panties, yelling and making noises. She was willing to take her home medication of Abilify, which helped her sleep and afterwards, though still manic, was able to engage in discussion. She says I do not want to be here. Patient says that in the community, she was not throwing rocks at [employer] workers, but was throwing items, lipstick and a receipt, saying she was trying to be sexy, hot... And something about fairies. Patient rambling about her Boy genius philosophical energy, healing, renewed trans revelation about herself... Patient reports that in the past when she had such episodes she would get paranoid and have auditory hallucinations; she was treated with Abilify in the past which helped however this takes away her creative energy and on it she would no longer do art. She has been off of it for several months. She feels that this current episode is welcomed, expanding her thoughts and something through the effect of spreading energy. Patient agrees that expressing herself in this way in public is not always welcomed and she thus agrees to continue with Abilify; she would like it lowered to see if at a lower dose it is helpful but will not take away her creative energy. -Report from crisis says patient was disorganized, nonsensical, and throwing rocks at the [employer] workers. Impression: Patient is clearly manic; she is happy though because this episode has not included any auditory hallucinations or paranoid delusions which she very much did not like. She agrees to restart Abilify though at a slightly lower dose, 15 mg. She says she will try to demonstrate appropriate behaviors as she wants to discharge christopher. Reviewed legal status which patient understands and she remains on a 12 B, not wanting to sign it 01/31: Continue current management and treatment plan. 02/01: Thorazine 50 mg PRN added. Consider Depakote if patient agreeable. 02/02 patient acknowledges that she has manic episodes and though she does not necessarily think she has bipolar disorder, agrees that manic episodes can be troublesome and says she does agree to medication. As patient remains manic she agrees to increasing Abilify back to 20 mg and getting on Depakote; grandmother present who knows patient well and agrees the patient is not a danger to herself or others though worries about her poorly treated bipolar disorder; patient refuses to sign in and says she will discharge to live with her partner 02/03 patient remains manic however health technical writer can not testify that patient is in imminent risk for harm to self or others; she has a place to stay with her partner who is supportive and family with whom she is close and try hard to help her. She agrees she needs medications and has remained adherent on the unit, taking Abilify 20 mg and now Depakote. While patient remains manic and vulnerable to further decompensation, she does not meet the level of involuntary commitment and so her request for discharge will be honored. Will keep patient on the unit another day so that she can get additional doses of medication. Thus far she has refused labs, including hemoglobin A1c and lipids, valproic acid level and other labs. Will continue to try Plan: 12 B Abilify to 20 mg Depakote extended release 500 mg q.h.s. Will order labs Plan Pt is a 28-year-old nonbinary assigned female at with a PMH significant for?hypothyroidism, MDD, ARNOL, and bipolar disorder who is admitted to [facility] psychiatry unit for disorganized behavior. Patient was initially brought to [facility] ED after police department picked them up for throwing rocks at [employer] workers. While on the unit here patient has been actively manic, refusing to participate in treatment and with poor insight and judgment. Patient has been moved to the group room to rest in seclusion. Medical consult for admission H&P. Mood disorder Plan as per Psychiatry Hypothyroidism Continue levothyroxine GERD Continue famotidine Patient is otherwise without acute medical complaints or known chronic medical conditions. Will sign off for now. Thank you for allowing us to participate in the care of this patient. Please re-consult if any acute issue or need arises. Patient educated on: diagnosis, medication risk/benefits and therapeutic strategies Informed Consent: understands, does not understand and further education needed Reason for continued inpatient stay Substantial Risk for: stable for discharge and med/psych decompensation Time Spent With Patient Time: Total time managing care of this patient today ____ minutes.
[2024-02-04] MEDS: Ibuprofen 400 MG TABLET PO (19:06)
[2024-02-04 20:00] VITALS: PULSE 96; TEMP 36.6; O2SAT 97
[2024-02-04] MEDS: traZODone HCL 50 MG TABLET PO (23:27)
[2024-02-05] MEDS: Nicotine Polacrilex 2 MG GUM 4 MG BUCCAL ×3 (00:03→07:15)
[2024-02-05] MEDS: traZODone HCL 50 MG TABLET PO (03:32)
[2024-02-05] MEDS: chlorproMAZINE HCl 25 MG TABLET 50 MG PO ×2 (03:32→08:23)
[2024-02-05] MEDS: Lactase TABLET 1 TAB PO (07:54)
[2024-02-05] MEDS: ARIPiprazole 20 MG TABLET PO (07:54)
[2024-02-05] MEDS: Famotidine 20 MG TABLET 40 MG PO (07:54)
[2024-02-05 08:00] VITALS: RESP 18
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
[2024-02-05 10:53] LABS: Valproate 17.2 mcg/mL (50.0-100.0)
[2024-02-05 10:56] LABS: Alanine Aminotransferase 17 U/L (0-31); Albumin Level 4.3 g/dL (3.5-5.0); Alkaline Phosphatase 40 U/L (39-117); Aspartate Amino Transferase 23 U/L (5-31); Bilirubin Direct 0.2 mg/dL (0.0-0.5); Bilirubin Total 0.4 mg/dL (0.0-1.0)
== END 2024-02-05 10:47 | disposition home or self-care (01) | DRG 753 ==
PROVIDERS: Admitting Provider Psychiatry & Neurology Psychiatry; PCP Nurse Practitioner Family; Visit Provider Psychiatry & Neurology Psychiatry
DX: F31.13 Bipolar disorder, current episode manic without psychotic features, severe (principal); E03.9 Hypothyroidism, unspecified; F17.210 Nicotine dependence, cigarettes, uncomplicated; K21.9 Gastro-esophageal reflux disease without esophagitis; Z71.6 Tobacco abuse counseling; Z79.890 Hormone replacement therapy; Z79.899 Other long term (current) drug therapy
CPT/HCPCS: 36415; 80076; 80164

== ENCOUNTER → 2024-01-31 00:15 | Outpatient (BNV) | payer MEDICAID, SELFPAY | PROVIDERS: Admitting Provider Psychiatry & Neurology Psychiatry; PCP Nurse Practitioner Family; Visit Provider Psychiatry & Neurology Psychiatry | DX: F31.2 Bipolar disorder, current episode manic severe with psychotic features (principal) | CPT/HCPCS: 90792; 99231; 99232 ==

== ENCOUNTER → 2024-01-31 00:15 | Outpatient (BNV) | payer MEDICAID, SELFPAY | PROVIDERS: Admitting Provider Psychiatry & Neurology Psychiatry; PCP Nurse Practitioner Family; Visit Provider Student in an Organized Health Care Education/Training Program | DX: Z00.8 Encounter for other general examination (principal) | CPT/HCPCS: 99429 ==

== ENCOUNTER 2024-02-06 10:05 | Inpatient (IN) | payer MEDICAID, OTHER, SELFPAY ==
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
[2024-02-06] MEDS: LORazepam 1 MG TABLET 2 MG PO (10:29)
[2024-02-06] MEDS: ARIPiprazole 20 MG TABLET PO (10:29)
[2024-02-06] MEDS: OLANZapine 5 MG TABLET PO (10:29)
[2024-02-06 10:33] VITALS: BP 140/60; PULSE 123; O2SAT 99
[2024-02-06 10:37] VITALS: BP 140/86; PULSE 123; RESP 18; TEMP 37.1; O2SAT 100; BMI 21.0
[2024-02-06 11:01] VITALS: BP 140/86; PULSE 123; RESP 18; TEMP 37.1; O2SAT 100
--- NOTE | 2024-02-06 12:53 | MHC.CARE ---
Pt will be a follow up, no disposition has been reached at this time.
--- NOTE | 2024-02-06 17:42 | PC.NURSE ---
Nursing Communication The patients sister Anne Marie called looking to get an update on the PT. PT is sleeping and unable to give RN permission to speak to the sister. No update was given. Sister left a phone number: [phone]
--- NOTE | 2024-02-07 | ECG_ITS ---
Test Reason : PVC Blood Pressure : / mmHG Vent. Rate : 097 BPM Atrial Rate : 097 BPM P-R Int : 128 ms QRS Dur : 084 ms QT Int : 364 ms P-R-T Axes : 076 066 037 degrees QTc Int : 462 ms Normal sinus rhythm Possible Left atrial enlargement Borderline ECG No previous ECGs available Referred By: Olvin Purdy Electronically Signed By:SUMIT CALDWELL
[2024-02-07 06:00] VITALS: RESP 18
[2024-02-07] MEDS: Nicotine Polacrilex 2 MG GUM BUCCAL ×2 (06:19→13:46)
[2024-02-07 06:31] LABS: Appearance Urine Cloudy; Color Urine Yellow; Glucose Urine UA Negative (Negative); Leukocyte Esterase Urine Negative (Negative); Nitrite Urine Negative (Negative); Specific Gravity - Urine >= 1.030 (1.005-1.025); Urine Blood Negative (Negative); Urine Ketones 15 mg/dL (Negative); Urine Protein Trace mg/dL (Neg-Trace)
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
[2024-02-07 06:32] LABS: UPreg QC Valid YES; Urine Pregnancy NEGATIVE (NEGATIVE)
[2024-02-07 06:37] LABS: Amphetamine Screen Urine Not Detected (Not Detect); Barbiturates, Urine Not Detected (Not Detect); Benzodiazepines Screen Urine Not Detected (Not Detect); Buprenorphine Scr Not Detected (Not Detect); Cannabinoid Screen Urine POSITIVE (Not Detect); Cocaine Screen Urine Not Detected (Not Detect); Fentanyl, urine Not Detected (Not Detect); Methadone Screen, Urine Not Detected (Not Detect); Opiate Screen Urine Not Detected (Not Detect); Phencyclidine Screen Urine Not Detected (Not Detect)
[2024-02-07 06:46] LABS: Oxycodone Screen Urine Not Detected (Not Detect)
[2024-02-07 07:40] LABS: MANUAL DIFF FLAG NO
[2024-02-07 07:43] LABS: Basophils Absolute Auto 0.1 X10*3/uL (0.0-0.2); Basophils Percent Auto 0.5 % (0-2); Eosinophils Absolute Auto 0.3 X10*3/uL (0.0-0.4); Eosinophils Percent Auto 3.1 % (0-4); Hematocrit 40.9 % (37.0-47.0); Hemoglobin 13.7 g/dl (12.0-16.0); Imm Gran Abs Auto 0.03 X10*3/uL (0.00-0.03); Imm Gran Pct Auto 0.3 % (0.0-0.4); Lymphocytes Absolute Auto 1.6 X10*3/uL (1.2-4.9); Lymphocytes Percent Auto 16.8 % (20-40); Mean Corpuscular HGB Conc 33.5 g/dl (31.0-35.0); Mean Corpuscular Hemoglobin 31.5 pg (27.0-33.0); Mean Platelet Volume 9.5 fL (9.4-12.3); Monocytes Absolute Auto 0.5 X10*3/uL (0.1-1.2); Monocytes Percent Auto 4.9 % (2-11); Neutrophils Absolute Auto 7.1 x10*3/uL (2.0-8.3); Neutrophils Percent Auto 74.4 % (45-73); Platelet Count 324 X10*3/uL (160-400); Red Blood Count 4.35 X10*6/uL (4.20-5.50); Red Cell Distribution Width 12.6 % (11.0-16.0); White Blood Count 9.5 X10*3/uL (4.8-10.8)
[2024-02-07] MEDS: Nicotine 14 MG PATCH.TD24 TRANSDERMA (07:52)
[2024-02-07 07:58] LABS: Alanine Aminotransferase 17 U/L (0-31); Albumin Level 4.5 g/dL (3.5-5.0); Alkaline Phosphatase 41 U/L (39-117); Anion Gap 14 (12-20); Aspartate Amino Transferase 20 U/L (5-31); Bilirubin Total 0.4 mg/dL (0.0-1.0); Blood Urea Nitrogen 9 mg/dL (9-16); Calcium 9.4 mg/dL (8.4-10.2); Carbon Dioxide 21 mmol/L (22-29); Chloride 107 mmol/L (96-108); Estimated Glomerular Filt Rate > 60; Ethanol < 10 mg/dL; Glucose Random 135 mg/dL (60-115); Potassium 3.9 mmol/L (3.3-5.1); Sodium 138 mmol/L (135-145); Total Protein 7.5 g/dL (6.5-8.0)
[2024-02-07] MEDS: ARIPiprazole 20 MG TABLET PO (08:02)
[2024-02-07] MEDS: Famotidine 20 MG TABLET 40 MG PO (08:02)
[2024-02-07] MEDS: hydrOXYzine HCL 50 MG TABLET PO ×2 (08:02→16:19)
--- NOTE | 2024-02-07 09:05 | MHC.EDTECH ---
ekg completed by jerrica jarrett
--- NOTE | 2024-02-07 09:34 | MHC.CARE ---
Pt will be an inpatient psychiatric bedsearch
[2024-02-07] MEDS: Nicotine Polacrilex 2 MG GUM 4 MG BUCCAL (09:52)
--- NOTE | 2024-02-07 11:26 | PC.NURSE ---
Assumed care of this patient at 1100, patient manic, intermittently yelling, pacing unit, taking off her clothes. Responding to redirection moderately well, frequent requests for food/liquids.
[2024-02-07 14:00] VITALS: BP 136/75; PULSE 104; RESP 22; TEMP 36.6; O2SAT 98
--- NOTE | 2024-02-07 14:58 | PHA.MEDREC ---
Addendum entered by Ar Choe RPh 02/07/24 15:08: Reviewed by [facility]. Original Note: Pharmacy Consult ? Medication Reconciliation Pharmacy has reviewed the medication reconciliation done by nursing. Spoke to Patient's mother over the phone to confirm med list. Mother states Patient hasn't been on any home medications for few months. Patient was just discharged from [facility] 02/05/24 while patient was here she was on medication. Utilized discharge packet to confirm med list. Medications that where discontinued was Dicyclomine 10 mg, Lamotrigine 200 mg, Levothyroxine 50 mg.
--- NOTE | 2024-02-07 15:22 | PC.NURSE ---
Patient rapidly escalating at times, walking around unit yelling, yelling at family on phone, then suddenly calm sitting on her bed. CARE team able to speak to her and calm her down a bit.
[2024-02-07 16:00] VITALS: BP 136/76; PULSE 100; RESP 16; TEMP 36.6; O2SAT 99; BMI 21.0
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
[2024-02-07 20:00] VITALS: BP 153/92; PULSE 109; RESP 20; TEMP 36.8; O2SAT 97
[2024-02-07] MEDS: Divalproex Sodium ER 500 MG TAB.ER.24H 1000 MG PO (21:33)
[2024-02-07] MEDS: Acetaminophen 325 MG TABLET 650 MG PO (21:34)
[2024-02-07] MEDS: OLANZapine 5 MG TABLET PO (21:34)
[2024-02-08] MEDS: hydrOXYzine HCL 50 MG TABLET PO ×4 (01:55→23:32)
[2024-02-08] MEDS: Nicotine Polacrilex 2 MG GUM 4 MG BUCCAL ×2 (01:55→09:25)
[2024-02-08] MEDS: traZODone HCL 50 MG TABLET PO (03:19)
[2024-02-08] MEDS: Famotidine 20 MG TABLET 40 MG PO (07:59)
[2024-02-08 08:00] VITALS: BP 135/79; PULSE 112; RESP 18; TEMP 36.3; O2SAT 97
[2024-02-08] MEDS: ARIPiprazole 20 MG TABLET PO (08:00)
--- NOTE | 2024-02-08 09:11 | HO.PSYADMNOT ---
HPI Date of Service: 02/08/24 Chief Complaint: scott Sources of Information: patient interviewed, chart reviewed and crisis/core team assessment reviewed HPI Subjective Notes: Byrd Warning, Conditional Voluntary and Section 12B Narrative: Patient is a 28-year-old biological female (they/them) with history of bipolar disorder, who presents just a few days after recently discharged from on 02/04, who presents with scott and unsafe behaviors in the community. On approach, patient is hyperverbal, hyperactive and exuberant. Patient says she does not want to be on the unit and refuses to sign in voluntarily. Data Communications Software Consultant asked why patient returned to the hospital to which patient answers.. I do not know... Data Communications Software Consultant explained that it was reported that patient tried to jump out of their mother's moving car to which patient said well that is true... [place]... But it was because I was trying to show her something [on a piece of paper... about therapist and wanting to see her friend]... Data Communications Software Consultant said that that sounds unsafe to which patient again replied yea it was... The police showed up and helped me. Regarding medications however patient enthusiastically wants to continue on the same medications patient was on prior to discharge which story writer confirms as Abilify and Depakote. Patient remains hyperverbal, dancing around and unable to engage in a productive way any further. Alludes to AH. Past Psychiatric History: admission o01/2024; at least 1 prior admission and trial of Abilify, Risperdal (caused galactorrhea) and Vraylar Outpatient therapist Medical Evaluation Reviewed: Yes [facility] Medical History Bipolar I disorder Family History: Deferred due to patient's ability to engage Social History: Has partner for the past 8 months named Andrew Substance History: nicotine... Trauma History: Defer Diagnostics Vital Signs (24Hr): Vital Signs - 24 hr 02/07/24 14:00 02/07/24 16:00 02/07/24 20:00 Temperature 97.9 F 98 F 98.2 F Pulse Rate 104 H 100 109 H Respiratory Rate 22 H 16 20 Blood Pressure 136/75 136/76 153/92 H Pulse Oximetry 98 99 97 Oxygen Delivery Method Room Air Room Air 02/08/24 08:00 Temperature 97.4 F Pulse Rate 112 H Respiratory Rate 18 Blood Pressure 135/79 Pulse Oximetry 97 Oxygen Delivery Method Room Air BMI result Body Mass Index 21.0 Labs 02/07/24 07:35 02/07/24 07:35 Labs: Laboratory Results - last 48 hr 02/07/24 02/07/24 06:18 07:35 WBC 9.5 RBC 4.35 Hgb 13.7 Hct 40.9 MCV 94.0 MCH 31.5 MCHC 33.5 RDW 12.6 Plt Count 324 MPV 9.5 Immature Gran % (Auto) 0.3 Neut % (Auto) 74.4 H Lymph % (Auto) 16.8 L [place] % (Auto) 4.9 Eos % (Auto) 3.1 Baso % (Auto) 0.5 Lymph # (Auto) 1.6 [place] # (Auto) 0.5 Eos # (Auto) 0.3 Baso # (Auto) 0.1 Abs Immat Gran (auto) 0.03 Absolute Neuts (auto) 7.1 Absolute Nucleated RBC 0.000 Nucleated RBC % (auto) 0.0 Sodium 138 Potassium 3.9 Chloride 107 Carbon Dioxide 21 L Anion Gap 14 BUN 9 Creatinine 0.69 Estim Creat Clear Calc 115.0 Estimated GFR > 60 Random Glucose 135 H Calcium 9.4 Total Bilirubin 0.4 AST 20 ALT 17 Alkaline Phosphatase 41 Total Protein 7.5 Albumin 4.5 Urine Color Yellow Urine Appearance Cloudy Urine pH 6.0 Ur Specific [place] >= 1.030 H Urine Protein Trace Urine Glucose (UA) Negative Urine Ketones 15 Urine Blood Negative Urine Nitrite Negative Ur Leukocyte Esterase Negative Urine Test NEGATIVE Urine Opiates Screen Not Detected Ur Buprenorphine Scrn Not Detected Ur Oxycodone Screen Not Detected Urine Methadone Screen Not Detected Urine Fentanyl Screen Not Detected Ur Barbiturates Screen Not Detected Ur Phencyclidine Scrn Not Detected Ur Amphetamines Screen Not Detected U Benzodiazepines Scrn Not Detected Urine Cocaine Screen Not Detected U Marijuana (THC) Screen POSITIVE H Ethyl Alcohol < 10 Meds/Allergies Allergies Allergies Allergy/AdvReac Type Severity Reaction Status Date / Time cephalexin [From Keflex] Allergy Hives Verified 02/06/24 10:46 codeine Allergy Nausea and Verified 02/06/24 10:46 Vomiting Mental Status Exam Mental Status Exam Narrative: Pt is alert and oriented; behavior is manic, exuberant, loud and intermittently disorganized; patient is not in distress; dressed in casual attire, unkempt; mood is described as good and affect expansive; eye contact appropriate; Speech is hyperverbal and pressured, intermittently loud; psychomotor agitation present; thought process can be goal directed but is quite distracted and tangential; Thought content changes from topic to topic; with grandiosity; denies any SI/HI. Denies AVH Patients insight and judgment impaired Assessment & Plan Assessment & Plan (1) Bipolar I disorder: Status: Acute Code(s): F31.9 - Bipolar disorder, unspecified Plan Patient is a 28-year-old biological female (they/them) with history of bipolar disorder, who presents just a few days after recently discharged from on 02/04, who presents with scott and unsafe behaviors in the community. On approach, patient is hyperverbal, hyperactive and exuberant. Patient says she does not want to be on the unit and refuses to sign in voluntarily. Data Communications Software Consultant asked why patient returned to the hospital to which patient answers.. I do not know... Data Communications Software Consultant explained that it was reported that patient tried to jump out of their mother's moving car to which patient said well that is true... [place] the [place]... But it was because I was trying to show her something [on a piece of paper... about therapist and wanting to see her friend]... Data Communications Software Consultant said that that sounds unsafe to which patient again replied yea it was... The police showed up and helped me. Regarding medications however patient enthusiastically wants to continue on the same medications patient was on prior to discharge which story writer confirms as Abilify and Depakote. Patient remains hyperverbal, dancing around and unable to engage in a productive way any further. Alludes to . Formulation/clinical reasoning: Patient is manic and demonstrating that she is unable to keep herself safe in the community. Patient requires inpatient hospitalization. Currently she refuses to sign in; thankfully she is willing to take mood stabilizing medications though current medication regimen has not yet proven effective. Hopefully patient will be willing to sign herself in; otherwise will very likely need to file for involuntary commitment for patient's safety Plan: Twelve B Q 15 minutes for now Continue Abilify 20 mg daily Continue Depakote ER 1000 mg q.h.s. Gather collateral Patient educated on: diagnosis and medication risk/benefits Informed Consent: understands, does not understand and further education needed Reason for continued inpatient stay Substantial Risk for: harm to self and inability to function Statement Statement: I have reviewed the history and physical and performed a pertinent examination on my patient. No changes have occurred unless specified. If the History and Physical was not performed prior to admission, the Hospitalist's service will be consulted for completing the admission physical. Time Spent With Patient Time: Total time managing care of this patient today ____ minutes.
[2024-02-08] MEDS: OLANZapine 5 MG TABLET PO ×2 (09:26→18:39)
[2024-02-08] MEDS: Nicotine 21 MG PATCH.TD24 TRANSDERMA (11:47)
--- NOTE | 2024-02-08 12:22 | PC.NURSE ---
Cathi requested [facility] be contacted regarding her 12b status. I left them a message and placed signed release in her chart.
[2024-02-08] MEDS: Acetaminophen 325 MG TABLET 650 MG PO (15:30)
[2024-02-08 20:00] VITALS: BP 130/87; PULSE 104; RESP 20; TEMP 36.9; O2SAT 98
[2024-02-08] MEDS: Divalproex Sodium ER 500 MG TAB.ER.24H 1000 MG PO (23:37)
[2024-02-09 07:49] VITALS: BP 139/88; PULSE 110; RESP 18; TEMP 36.2; O2SAT 96
[2024-02-09] MEDS: Famotidine 20 MG TABLET 40 MG PO (08:14)
[2024-02-09] MEDS: ARIPiprazole 20 MG TABLET PO (08:14)
[2024-02-09] MEDS: Nicotine Polacrilex 2 MG GUM 4 MG BUCCAL ×3 (08:17→20:59)
[2024-02-09] MEDS: hydrOXYzine HCL 50 MG TABLET PO ×2 (09:09→16:26)
[2024-02-09] MEDS: Acetaminophen 325 MG TABLET 650 MG PO (10:03)
--- NOTE | 2024-02-09 10:17 | HO.PSYCHPN ---
Subjective Subjective Date of Service: 02/09/24 Reason For Visit: scott Interim History: Met with patient; discussed with team; family meeting with mom Last night patient got momentarily dysregulated and screamed while running down the hallway; she apologized afterwards. Patient remains easily emotionally provoked and can get dysregulated however she is trying hard to regulate herself and is quick to apologize for outbursts. She is overall more consistently logical and is demonstrated improved insight and judgment, though it remains with significant limitations and she does not yet grasp the dangerousness of her behaviors in the community i.e. jumping out of a moving car. Although she very much wants to discharge patient was able to agree that she needs further medication management on the unit in order to remain stable as an outpatient. Patient signed herself in on a CV, demonstrating significantly improved insight. Patient's mother visited and there was a family meeting which patient later said was very difficult for her and frustrating however justowriter operator felt patient handled herself quite well and kept herself in good behavioral and impulse control. Mom reported that it was very scary when patient jumped out of the moving car and is grateful that she had slow down; she said that once patient was out of the car she started trying to get into other people's cars as they were passing by. Only took half Depakote dose; patient was unaware of this and agreed to make up the dose today and continue with prescribed dose Mental Status Exam Mental Status Exam Narrative: Pt is alert and oriented; behavior remains manic but less so and paste is improving in behavioral control; remains intermittently loud but trying to edit herself and apologizing when disorderly; patient is not in distress; dressed in casual attire, unkempt but adequate hygiene; mood is described as good and affect expansive but also labile and sometimes tearful; eye contact appropriate; Speech is hyperverbal and pressured, but less so and more able to have a conversation; intermittent psychomotor agitation present; thought process more able to be goal directed and linear, though still distracted; Thought content is on both discharge and treatment; no observable delusional thinking; denies any SI/HI. Denies AVH Patients insight and judgment impaired but improved Diagnostics Vital Signs (24Hr): Vital Signs - 24 hr 02/08/24 20:00 02/09/24 07:49 Temperature 98.5 F 97.2 F Pulse Rate 104 H 110 H Respiratory Rate 20 18 Blood Pressure 130/87 139/88 Pulse Oximetry 98 96 Oxygen Delivery Method Room Air Room Air BMI result Body Mass Index 21.0 Labs 02/07/24 07:35 02/07/24 07:35 Medications Medications Current Medications Acetaminophen (Acetaminophen 325 Mg Tablet) 650 mg PO Q6H PRN PRN Reason: Headache/Pain Mild Scale (1-3) Last Admin: 02/09/24 10:03 Dose: 650 mg Al Hydroxide/Mg Hydroxide (Magnesium Hydrox/Alum Hydrox 30 Ml Oral.Susp) 30 ml PO Q6H PRN PRN Reason: Heartburn/Nausea Aripiprazole (Aripiprazole 20 Mg Tablet) 20 mg PO DAILY [facility] Last Admin: 02/09/24 08:14 Dose: 20 mg Divalproex Sodium (Divalproex Sodium Er 500 Mg Tab.Er.24h) 1,000 mg PO BEDTIME [facility] Last Admin: 02/08/24 23:37 Dose: 500 mg Famotidine (Famotidine 20 Mg Tablet) 40 mg PO DAILY [facility] Last Admin: 02/09/24 08:14 Dose: 40 mg Hydroxyzine HCl (Hydroxyzine Hcl 50 Mg Tablet) 50 mg PO QID PRN PRN Reason: Anxiety Last Admin: 02/09/24 09:09 Dose: 50 mg Hydroxyzine HCl (Hydroxyzine Hcl 25 Mg Tablet) 25 mg PO Q6H PRN PRN Reason: Anxiety Magnesium Hydroxide (Milk Of Magnesia 30 Ml Oral.Susp) 30 ml PO DAILY PRN PRN Reason: Constipation Nicotine (Nicotine 21 Mg Patch.Td24) 21 mg TRANSDERMA DAILY PRN PRN Reason: smoking cessation Last Admin: 02/08/24 11:47 Dose: 21 mg Nicotine Polacrilex (Nicotine Polacrilex 2 Mg Gum) 2 mg BUCCAL QID PRN PRN Reason: Nicotine Cravings Last Admin: 02/07/24 13:46 Dose: 2 mg Nicotine Polacrilex (Nicotine Polacrilex 2 Mg Gum) 4 mg BUCCAL Q2H PRN PRN Reason: nicotine cravings Last Admin: 02/09/24 08:17 Dose: 4 mg Nicotine Polacrilex (Nicotine Polacrilex 2 Mg Gum) 4 mg BUCCAL Q2H PRN PRN Reason: Nicotine Cravings Olanzapine (Olanzapine 5 Mg Tablet) 5 mg PO TID PRN PRN Reason: agitation Last Admin: 02/08/24 18:39 Dose: 5 mg Trazodone HCl (Trazodone Hcl 50 Mg Tablet) 50 mg PO BEDTIME MRX1 PRN PRN Reason: Insomnia Last Admin: 02/08/24 03:19 Dose: 50 mg Allergies Allergies Allergy/AdvReac Type Severity Reaction Status Date / Time cephalexin [From Keflex] Allergy Hives Verified 02/06/24 10:46 codeine Allergy Nausea and Verified 02/06/24 10:46 Vomiting Assessment & Plan Assessment & Plan (1) Bipolar I disorder: Status: Acute Code(s): F31.9 - Bipolar disorder, unspecified Plan Patient is a 28-year-old biological female (they/them) with history of bipolar disorder, who presents just a few days after recently discharged from on 02/04, who presents with scott and unsafe behaviors in the community. On approach, patient is hyperverbal, hyperactive and exuberant. Patient says she does not want to be on the unit and refuses to sign in voluntarily. Field Artillery Operations Specialist asked why patient returned to the hospital to which patient answers.. I do not know... Field Artillery Operations Specialist explained that it was reported that patient tried to jump out of their mother's moving car to which patient said well that is true... [place]... But it was because I was trying to show her something [on a piece of paper... about therapist and wanting to see her friend]... Field Art[employer] Operations Specialist said that that sounds unsafe to which patient again replied yea it was... The police showed up and helped me. Regarding medications however patient enthusiastically wants to continue on the same medications patient was on prior to discharge which justowriter operator confirms as Abilify and Depakote. Patient remains hyperverbal, dancing around and unable to engage in a productive way any further. Alludes to . Formulation/clinical reasoning: Patient is manic and demonstrating that she is unable to keep herself safe in the community. Patient requires inpatient hospitalization. Currently she refuses to sign in; thankfully she is willing to take mood stabilizing medications though current medication regimen has not yet proven effective. Hopefully patient will be willing to sign herself in; otherwise will very likely need to file for involuntary commitment for patient's safety Hospital course: 02/08 Last night patient got momentarily dysregulated and screamed while running down the hallway; she apologized afterwards. Patient remains easily emotionally provoked and can get dysregulated however she is trying hard to regulate herself and is quick to apologize for outbursts. She is overall more consistently logical and is demonstrated improved insight and judgment, though it remains with significant limitations and she does not yet grasp the dangerousness of her behaviors in the community i.e. jumping out of a moving car. Although she very much wants to discharge patient was able to agree that she needs further medication management on the unit in order to remain stable as an outpatient. Patient signed herself in on a CV, demonstrating significantly improved insight. Patient's mother visited and there was a family meeting which patient later said was very difficult for her and frustrating however justowriter operator felt patient handled herself quite well and kept herself in good behavioral and impulse control. Mom reported that it was very scary when patient jumped out of the moving car and is grateful that she had slow down; she said that once patient was out of the car she started trying to get into other people's cars as they were passing by. Only took half Depakote dose; patient was unaware of this and agreed to make up the dose today and continue with prescribed dose Plan: CV Q 15 minutes for now Continue Abilify 20 mg daily Continue Depakote ER 1000 mg q.h.s. -order Depakote level; patient struggles to give blood because it reminds her of when her mother had cancer Gather collateral Patient educated on: diagnosis, medication risk/benefits and therapeutic strategies Informed Consent: understands Reason for continued inpatient stay Substantial Risk for: stable for discharge, rapid decompensation and med/psych decompensation Time Spent With Patient Time: Total time managing care of this patient today ____ minutes.
[2024-02-09] MEDS: OLANZapine 5 MG TABLET PO (10:54)
[2024-02-09] MEDS: Divalproex Sodium ER 500 MG TAB.ER.24H PO (12:59)
[2024-02-09] MEDS: Ibuprofen 600 MG TABLET PO (13:37)
[2024-02-09] MEDS: Nicotine Polacrilex 2 MG GUM BUCCAL (18:21)
[2024-02-09 20:00] VITALS: BP 137/81; PULSE 98; RESP 15; TEMP 35.8; O2SAT 99
[2024-02-09] MEDS: traZODone HCL 50 MG TABLET PO (20:25)
[2024-02-09] MEDS: Divalproex Sodium ER 500 MG TAB.ER.24H 1000 MG PO (20:25)
[2024-02-10] MEDS: hydrOXYzine HCL 50 MG TABLET PO ×3 (07:19→20:38)
[2024-02-10] MEDS: Nicotine 21 MG PATCH.TD24 TRANSDERMA (07:22)
[2024-02-10 08:00] VITALS: BP 154/86; PULSE 114; RESP 18; TEMP 36.6; O2SAT 98
[2024-02-10] MEDS: Famotidine 20 MG TABLET 40 MG PO (08:05)
[2024-02-10 09:00] LABS: Ammonia 82 umol/L (13-55)
[2024-02-10 09:29] LABS: Estimated Average Glucose 91 mg/dL; Hemoglobin A1C 97.6982 umol/L; Hemoglobin A1c % 4.8 % (<6.0); Total Hemoglobin (HGBA1C) 3398.3876 umol/L
[2024-02-10 09:35] LABS: Valproate 79.8 mcg/mL (50.0-100.0)
--- NOTE | 2024-02-10 09:45 | HO.PSYCHPN ---
Subjective Subjective Date of Service: 02/10/24 Reason For Visit: scott Interim History: With patient; discussed with team Patient doing much better, although still distracted and circumstantial, overall logical and organized in speech and behavior. Understands diagnosis which was discussed at length. Understands treatment issues, needs for medication which she agrees with and wants to continue. Patient shared that she has embarrassed by her past behaviors and way she talk to staff; she has been apologizing. Patient is worried that being on the unit too much longer will start to become counterproductive as the unit is triggering. Discussed elevated ammonia, causes, risks; patient is not having any current side effects. Patient adamantly advocated that she remain on current dose since she is very afraid of becoming manic again. She says she will follow up with outpatient providers and have levels monitored but since it does not seem to be causing a problem now, wants it left as it is. Mental Status Exam Mental Status Exam Narrative: Pt is alert and oriented; behavior in much improved behavioral and impulse control; some hypomanic tendencies remain; patient is not in distress; dressed in casual attire with adequate hygiene; mood is described as good and affect a little expansive but less; eye contact appropriate; Speech is hyperverbal and can be mildly pressured, but much less so, able to be easily interrupted have a productive given take conversation; no psychomotor agitation present; thought process is goal directed and logical; can be linear, though still frequently circumstantial; Thought content is on both discharge and treatment; no observable delusional thinking; denies any SI/HI. Denies AVH Patients insight and judgment fair Diagnostics Vital Signs (24Hr): Vital Signs - 24 hr 02/09/24 20:00 02/10/24 08:00 Temperature 96.4 F L 97.9 F Pulse Rate 98 114 H Respiratory Rate 15 18 Blood Pressure 137/81 154/86 H Pulse Oximetry 99 98 Oxygen Delivery Method Room Air BMI result Body Mass Index 21.0 Labs 02/07/24 07:35 02/10/24 08:45 Labs: Laboratory Results - last 48 hr 02/10/24 02/10/24 08:45 08:46 Estimat Average Glucose 91 Hemoglobin A1c % 4.8 Ammonia 82 H Valproic Acid 79.8 Medications Medications Current Medications Acetaminophen (Acetaminophen 325 Mg Tablet) 650 mg PO Q6H PRN PRN Reason: Headache/Pain Mild Scale (1-3) Last Admin: 02/09/24 10:03 Dose: 650 mg Al Hydroxide/Mg Hydroxide (Magnesium Hydrox/Alum Hydrox 30 Ml Oral.Susp) 30 ml PO Q6H PRN PRN Reason: Heartburn/Nausea Aripiprazole (Aripiprazole 20 Mg Tablet) 20 mg PO BEDTIME DAYANA Divalproex Sodium (Divalproex Sodium Er 500 Mg Tab.Er.24h) 1,000 mg PO BEDTIME DAYANA Last Admin: 02/09/24 20:25 Dose: 1,000 mg Famotidine (Famotidine 20 Mg Tablet) 40 mg PO DAILY DAYANA Last Admin: 02/10/24 08:05 Dose: 40 mg Hydroxyzine HCl (Hydroxyzine Hcl 50 Mg Tablet) 50 mg PO QID PRN PRN Reason: Anxiety Last Admin: 02/10/24 07:19 Dose: 50 mg Hydroxyzine HCl (Hydroxyzine Hcl 25 Mg Tablet) 25 mg PO Q6H PRN PRN Reason: Anxiety Ibuprofen (Ibuprofen 600 Mg Tablet) 600 mg PO Q6H PRN PRN Reason: moderate pain Last Admin: 02/09/24 13:37 Dose: 600 mg Magnesium Hydroxide (Milk Of Magnesia 30 Ml Oral.Susp) 30 ml PO DAILY PRN PRN Reason: Constipation Nicotine (Nicotine 21 Mg Patch.Td24) 21 mg TRANSDERMA DAILY PRN PRN Reason: smoking cessation Last Admin: 02/10/24 07:22 Dose: 21 mg Nicotine Polacrilex (Nicotine Polacrilex 2 Mg Gum) 2 mg BUCCAL QID PRN PRN Reason: Nicotine Cravings Last Admin: 02/09/24 18:21 Dose: 2 mg Nicotine Polacrilex (Nicotine Polacrilex 2 Mg Gum) 4 mg BUCCAL Q2H PRN PRN Reason: nicotine cravings Last Admin: 02/09/24 20:59 Dose: 4 mg Nicotine Polacrilex (Nicotine Polacrilex 2 Mg Gum) 4 mg BUCCAL Q2H PRN PRN Reason: Nicotine Cravings Olanzapine (Olanzapine 5 Mg Tablet) 5 mg PO TID PRN PRN Reason: agitation Last Admin: 02/09/24 10:54 Dose: 5 mg Trazodone HCl (Trazodone Hcl 50 Mg Tablet) 50 mg PO BEDTIME MRX1 PRN PRN Reason: Insomnia Last Admin: 02/09/24 20:25 Dose: 50 mg Allergies Allergies Allergy/AdvReac Type Severity Reaction Status Date / Time cephalexin [From Keflex] Allergy Hives Verified 02/06/24 10:46 codeine Allergy Nausea and Verified 02/06/24 10:46 Vomiting Assessment & Plan Assessment & Plan (1) Bipolar I disorder: Status: Acute Code(s): F31.9 - Bipolar disorder, unspecified Plan Patient is a 28-year-old biological female (they/them) with history of bipolar disorder, who presents just a few days after recently discharged from on 02/04, who presents with scott and unsafe behaviors in the community. On approach, patient is hyperverbal, hyperactive and exuberant. Patient says she does not want to be on the unit and refuses to sign in voluntarily. Seamer Panty Hose asked why patient returned to the hospital to which patient answers.. I do not know... Seamer Panty [employer]ose explained that it was reported that patient tried to jump out of their mother's moving car to which patient said well that is true... [place]... But it was because I was trying to show her something [on a piece of paper... about therapist and wanting to see her friend]... Seamer Panty Hose said that that sounds unsafe to which patient again replied yea it was... The police showed up and helped me. Regarding medications however patient enthusiastically wants to continue on the same medications patient was on prior to discharge which telegraphic typewriter installer confirms as Abilify and Depakote. Patient remains hyperverbal, dancing around and unable to engage in a productive way any further. Alludes to AH. Formulation/clinical reasoning: Patient is manic and demonstrating that she is unable to keep herself safe in the community. Patient requires inpatient hospitalization. Currently she refuses to sign in; thankfully she is willing to take mood stabilizing medications though current medication regimen has not yet proven effective. Hopefully patient will be willing to sign herself in; otherwise will very likely need to file for involuntary commitment for patient's safety Hospital course: 02/08 Last night patient got momentarily dysregulated and screamed while running down the hallway; she apologized afterwards. Patient remains easily emotionally provoked and can get dysregulated however she is trying hard to regulate herself and is quick to apologize for outbursts. She is overall more consistently logical and is demonstrated improved insight and judgment, though it remains with significant limitations and she does not yet grasp the dangerousness of her behaviors in the community i.e. jumping out of a moving car. Although she very much wants to discharge patient was able to agree that she needs further medication management on the unit in order to remain stable as an outpatient. Patient signed herself in on a CV, demonstrating significantly improved insight. Patient's mother visited and there was a family meeting which patient later said was very difficult for her and frustrating however telegraphic typewriter installer felt patient handled herself quite well and kept herself in good behavioral and impulse control. Mom reported that it was very scary when patient jumped out of the moving car and is grateful that she had slow down; she said that once patient was out of the car she started trying to get into other people's cars as they were passing by. Only took half Depakote dose; patient was unaware of this and agreed to make up the dose today and continue with prescribed dose 02/09 Patient doing much better, although still distracted and circumstantial, overall logical and organized in speech and behavior. Understands diagnosis which was discussed at length. Understands treatment issues, needs for medication which she agrees with and wants to continue. Patient shared that she has embarrassed by her past behaviors and way she talk to staff; she has been apologizing. Patient is worried that being on the unit too much longer will start to become counterproductive as the unit is triggering. -patient does have some remaining hypomanic behaviors; however patient may also have ADHD and have dramatically flare at baseline, something she professes to; some consideration given to schizotypal personality disorder. Despite remaining hypomanic symptoms, patient is overall organized in speech and behavior. Discussed elevated ammonia, causes, risks; patient is not having any current side effects. Patient adamantly advocated that she remain on current dose since she is very afraid of becoming manic again. She says she will follow up with outpatient providers and have levels monitored but since it does not seem to be causing a problem now, wants it left as it is. -discussing with colleagues Plan: CV Q 15 minutes for now Continue Abilify 20 mg daily Continue Depakote ER 1000 mg q.h.s. -order Depakote level; patient struggles to give blood because it reminds her of when her mother had cancer Gather collateral Patient educated on: diagnosis, medication risk/benefits and therapeutic strategies Informed Consent: understands Reason for continued inpatient stay Substantial Risk for: stable for discharge and rapid decompensation Time Spent With Patient Time: Total time managing care of this patient today ____ minutes.
[2024-02-10 09:46] LABS: Alanine Aminotransferase 17 U/L (0-31); Albumin Level 4.4 g/dL (3.5-5.0); Alkaline Phosphatase 38 U/L (39-117); Anion Gap 10 (12-20); Aspartate Amino Transferase 17 U/L (5-31); Bilirubin Total 0.3 mg/dL (0.0-1.0); Blood Urea Nitrogen 10 mg/dL (9-16); Calcium 9.6 mg/dL (8.4-10.2); Carbon Dioxide 25 mmol/L (22-29); Chloride 109 mmol/L (96-108); Cholesterol 145 mg/dL (<200); Estimated Glomerular Filt Rate > 60; Glucose Random 79 mg/dL (60-115); HDL Cholesterol 47 mg/dL (>40); LDL Cholesterol Calculated 91 mg/dL (<100); Potassium 3.9 mmol/L (3.3-5.1); Sodium 140 mmol/L (135-145); Total Protein 7.3 g/dL (6.5-8.0); Triglycerides 39 mg/dL (<150)
[2024-02-10] MEDS: Nicotine Polacrilex 2 MG GUM 4 MG BUCCAL ×2 (09:54→15:38)
[2024-02-10 09:59] LABS: TSH reflex Free T4 1.31 uIU/mL (0.32-4.0)
[2024-02-10] MEDS: Lactase TABLET 1 TAB PO (13:21)
[2024-02-10 19:55] VITALS: BP 138/83; PULSE 84; RESP 16; TEMP 36.4; O2SAT 94
[2024-02-10] MEDS: Divalproex Sodium ER 500 MG TAB.ER.24H 1000 MG PO (20:38)
[2024-02-10] MEDS: ARIPiprazole 20 MG TABLET PO (20:38)
[2024-02-10] MEDS: traZODone HCL 50 MG TABLET PO (20:38)
[2024-02-11 08:35] VITALS: BP 136/75; PULSE 102; RESP 16; TEMP 36.4; O2SAT 96
[2024-02-11] MEDS: Nicotine 21 MG PATCH.TD24 TRANSDERMA (08:39)
[2024-02-11] MEDS: Famotidine 20 MG TABLET 40 MG PO (08:39)
[2024-02-11] MEDS: Nicotine Polacrilex 2 MG GUM BUCCAL ×2 (08:40→17:58)
[2024-02-11] MEDS: Lactase TABLET 1 TAB PO ×3 (08:40→17:00)
[2024-02-11] MEDS: Nicotine Polacrilex 2 MG GUM 4 MG BUCCAL (11:22)
[2024-02-11] MEDS: Acetaminophen 325 MG TABLET 650 MG PO (11:50)
--- NOTE | 2024-02-11 14:05 | P.PNPSI_ITS ---
Subjective Subjective Date of Service: 02/11/24 Reason For Visit: scott Interim History: met with patient; discussed with team Patient remains much improved; still with some hypomania but in good behavioral and impulse control; she is logical and linear in thought process and organized in speech and behavior. Patient understands her medical illness and need for medication. Discussed managing hyperammonemia and patient agrees to take lactulose; she also agrees to have ammonium monitor outpatient sheet writer. Co[employer] unable to get a hold of this person at since it has not been assigned. Also discussed starting L carnitine supplement and reviewed reasons for and potential risks/side effects of this medication. Patient fully understands and agrees to medication plan. Reviewed risks/side effects of Depakote which patient understands, including that it is a teratogen. Patient very much wants to discharge tomorrow, feeling that the unit is triggering. She is thankful for help received and feels she will be able to remain stable. Diagnostics Vital Signs (24Hr): Vital Signs - 24 hr 02/10/24 19:55 02/11/24 08:35 Temperature 97.5 F 97.5 F Pulse Rate 84 102 H Respiratory Rate 16 16 Blood Pressure 138/83 136/75 Pulse Oximetry 94 96 Oxygen Delivery Method Room Air Room Air BMI result Body Mass Index 21.0 Labs 02/07/24 07:35 02/10/24 08:45 Labs: Laboratory Results - last 48 hr 02/10/24 02/10/24 08:45 08:46 Sodium 140 Potassium 3.9 Chloride 109 H Carbon Dioxide 25 Anion Gap 10 L BUN 10 Creatinine 0.69 Estim Creat Clear Calc 115.0 Estimated GFR > 60 Random Glucose 79 Estimat Average Glucose 91 Hemoglobin A1c % 4.8 Calcium 9.6 Total Bilirubin 0.3 AST 17 ALT 17 Alkaline Phosphatase 38 L Ammonia 82 H Total Protein 7.3 Albumin 4.4 Triglycerides 39 Cholesterol 145 LDL Cholesterol, Calc 91 HDL Cholesterol 47 TSH 1.31 Valproic Acid 79.8 Medications Medications Current Medications Acetaminophen (Acetaminophen 325 Mg Tablet) 650 mg PO Q6H PRN PRN Reason: Headache/Pain Mild Scale (1-3) Last Admin: 02/11/24 11:50 Dose: 650 mg Al Hydroxide/Mg Hydroxide (Magnesium Hydrox/Alum Hydrox 30 Ml Oral.Susp) 30 ml PO Q6H PRN PRN Reason: Heartburn/Nausea Aripiprazole (Aripiprazole 20 Mg Tablet) 20 mg PO BEDTIME DAYANA Last Admin: 02/10/24 20:38 Dose: 20 mg Divalproex Sodium (Divalproex Sodium Er 500 Mg Tab.Er.24h) 1,000 mg PO BEDTIME DAYANA Last Admin: 02/10/24 20:38 Dose: 1,000 mg Famotidine (Famotidine 20 Mg Tablet) 40 mg PO DAILY DAYANA Last Admin: 02/11/24 08:39 Dose: 40 mg Hydroxyzine HCl (Hydroxyzine Hcl 50 Mg Tablet) 50 mg PO QID PRN PRN Reason: Anxiety Last Admin: 02/10/24 20:38 Dose: 50 mg Hydroxyzine HCl (Hydroxyzine Hcl 25 Mg Tablet) 25 mg PO Q6H PRN PRN Reason: Anxiety Ibuprofen (Ibuprofen 600 Mg Tablet) 600 mg PO Q6H PRN PRN Reason: moderate pain Last Admin: 02/09/24 13:37 Dose: 600 mg Lactase (Lactase Tablet) 1 tab PO TIDWM DAYANA Last Admin: 02/11/24 11:51 Dose: 1 tab Magnesium Hydroxide (Milk Of Magnesia 30 Ml Oral.Susp) 30 ml PO DAILY PRN PRN Reason: Constipation Nicotine (Nicotine 21 Mg Patch.Td24) 21 mg TRANSDERMA DAILY PRN PRN Reason: smoking cessation Last Admin: 02/11/24 08:39 Dose: 21 mg Nicotine Polacrilex (Nicotine Polacrilex 2 Mg Gum) 2 mg BUCCAL QID PRN PRN Reason: Nicotine Cravings Last Admin: 02/11/24 08:40 Dose: 2 mg Nicotine Polacrilex (Nicotine Polacrilex 2 Mg Gum) 4 mg BUCCAL Q2H PRN PRN Reason: nicotine cravings Last Admin: 02/11/24 11:22 Dose: 4 mg Nicotine Polacrilex (Nicotine Polacrilex 2 Mg Gum) 4 mg BUCCAL Q2H PRN PRN Reason: Nicotine Cravings Olanzapine (Olanzapine 5 Mg Tablet) 5 mg PO TID PRN PRN Reason: agitation Last Admin: 02/09/24 10:54 Dose: 5 mg Trazodone HCl (Trazodone Hcl 50 Mg Tablet) 50 mg PO BEDTIME MRX1 PRN PRN Reason: Insomnia Last Admin: 02/10/24 20:38 Dose: 50 mg Allergies Allergies Allergy/AdvReac Type Severity Reaction Status Date / Time cephalexin [From Keflex] Allergy Hives Verified 02/06/24 10:46 codeine Allergy Nausea and Verified 02/06/24 10:46 Vomiting Assessment & Plan Assessment & Plan (1) Bipolar I disorder: Status: Acute Code(s): F31.9 - Bipolar disorder, unspecified Plan Patient is a 28-year-old biological female (they/them) with history of bipolar disorder, who presents just a few days after recently discharged from on 02/04, who presents with scott and unsafe behaviors in the community. On approach, patient is hyperverbal, hyperactive and exuberant. Patient says she does not want to be on the unit and refuses to sign in voluntarily. Coater Operator [employer] Board asked why patient returned to the hospital to which patient answers.. I do not know... Coater Operator Ins[employer] Board explained that it was reported that patient tried to jump out of their mother's moving car to which patient said well that is true... [place] rotary... But it was because I was trying to show her something [on a piece of paper... about therapist and wanting to see her friend]... Coater Operator [employer] Board said that that sounds unsafe to which patient again replied yea it was... The police showed up and helped me. Regarding medications however patient enthusiastically wants to continue on the same medications patient was on prior to discharge which sheet writer confirms as Abilify and Depakote. Patient remains hyperverbal, dancing around and unable to engage in a productive way any further. Alludes to AH. Formulation/clinical reasoning: Patient is manic and demonstrating that she is unable to keep herself safe in the community. Patient requires inpatient hospitalization. Currently she refuses to sign in; thankfully she is willing to take mood stabilizing medications though current medication regimen has not yet proven effective. Hopefully patient will be willing to sign herself in; otherwise will very likely need to file for involuntary commitment for patient's safety Hospital course: 02/08 Last night patient got momentarily dysregulated and screamed while running down the hallway; she apologized afterwards. Patient remains easily emotionally provoked and can get dysregulated however she is trying hard to regulate herself and is quick to apologize for outbursts. She is overall more consistently logical and is demonstrated improved insight and judgment, though it remains with significant limitations and she does not yet grasp the dangerousness of her behaviors in the community i.e. jumping out of a moving car. Although she very much wants to discharge patient was able to agree that she needs further medication management on the unit in order to remain stable as an outpatient. Patient signed herself in on a CV, demonstrating significantly improved insight. Patient's mother visited and there was a family meeting which patient later said was very difficult for her and frustrating however sheet writer felt patient handled herself quite well and kept herself in good behavioral and impulse control. Mom reported that it was very scary when patient jumped out of the moving car and is grateful that she had slow down; she said that once patient was out of the car she started trying to get into other people's cars as they were passing by. Only took half Depakote dose; patient was unaware of this and agreed to make up the dose today and continue with prescribed dose 02/09 Patient doing much better, although still distracted and circumstantial, overall logical and organized in speech and behavior. Understands diagnosis which was discussed at length. Understands treatment issues, needs for medication which she agrees with and wants to continue. Patient shared that she has embarrassed by her past behaviors and way she talk to staff; she has been apologizing. Patient is worried that being on the unit too much longer will start to become counterproductive as the unit is triggering. -patient does have some remaining hypomanic behaviors; however patient may also have ADHD and have dramatically flare at baseline, something she professes to; some consideration given to schizotypal personality disorder. Despite remaining hypomanic symptoms, patient is overall organized in speech and behavior. Discussed elevated ammonia, causes, risks; patient is not having any current side effects. Patient adamantly advocated that she remain on current dose since she is very afraid of becoming manic again. She says she will follow up with outpatient providers and have levels monitored but since it does not seem to be causing a problem now, wants it left as it is. -discussing with colleagues 02/10 Patient remains much improved; still with some hypomania but in good behavioral and impulse control; she is logical and linear in thought process and organized in speech and behavior. Patient understands her medical illness and need for medication. Discussed managing hyperammonemia and patient agrees to take lactulose; she also agrees to have ammonium monitor outpatient sheet writer. Co[employer] unable to get a hold of this person at since it has not been assigned. Also discussed starting L carnitine supplement and reviewed reasons for and potential risks/side effects of this medication. Patient fully understands and agrees to medication plan. Reviewed risks/side effects of Depakote which patient understands, including that it is a teratogen. Patient very much wants to discharge tomorrow, feeling that the unit is triggering. She is thankful for help received and feels she will be able to remain stable. Patient politely but adamantly request discharge, feeling stable, back to her regular self and optimistic about remained stable. She has demonstrated good insight and judgment and understands both her illness and treatment well. Patient is not in imminent risk for harm to self or others and appropriate to return to the community for treatment. Request for discharge honored. Plan: CV Q 15 minutes for now Continue Abilify 20 mg daily Continue Depakote ER 1000 mg q.h.s. -order Depakote level; patient struggles to give blood because it reminds her of when her mother had cancer Gather collateral Patient educated on: diagnosis, medication risk/benefits and therapeutic strategies Informed Consent: understands Reason for continued inpatient stay Substantial Risk for: stable for discharge Time Spent With Patient Time: Total time managing care of this patient today ____ minutes.
--- NOTE | 2024-02-11 17:09 | PC.NURSE ---
pt declined lactulose despite education. Dr Gay said I could take it when I went home because I already have IBS and I can't use my bathroom with a roommate . Provider made EL aware
[2024-02-11] MEDS: ARIPiprazole 20 MG TABLET PO (19:53)
[2024-02-11] MEDS: Divalproex Sodium ER 500 MG TAB.ER.24H 1000 MG PO (19:53)
[2024-02-11] MEDS: traZODone HCL 50 MG TABLET PO (19:53)
[2024-02-11 20:00] VITALS: BP 145/92; PULSE 114; TEMP 36.1; O2SAT 96
[2024-02-11] MEDS: hydrOXYzine HCL 50 MG TABLET PO (20:53)
[2024-02-12] MEDS: Nicotine 21 MG PATCH.TD24 TRANSDERMA (06:38)
[2024-02-12 08:11] VITALS: BP 120/80; PULSE 108; TEMP 36.5; O2SAT 98
[2024-02-12] MEDS: Lactase TABLET 1 TAB PO (08:45)
[2024-02-12] MEDS: Famotidine 20 MG TABLET 40 MG PO (08:45)
--- NOTE | 2024-02-12 08:57 | P.DS_ITS ---
DS: Providers Provider Date of Service: 02/12/24 Date of admission: 02/07/24 13:57 Date of discharge: 02/12/24 Primary care physician: Unknown Physician Attending physician on admission: Warner Gay Attending physician on discharge: Warner Gay DS: Diagnosis Discharge Diagnosis (1) Bipolar I disorder: Status: Acute DS: Medications Discharge Medications Home Medications: Previous Rx's ?Medication ?Instructions ?Recorded aripiprazole 20 mg tablet 20 mg PO DAILY 30 days #30 tabs 02/05/24 hydroxyzine HCl 50 mg tablet 50 mg PO QID PRN Anxiety 30 days 02/05/24 #60 tabs nicotine (polacrilex) 4 mg gum 4 mg buccal Q2H PRN nicotine 02/05/24 cravings 30 days #100 ea divalproex 500 mg tablet,extended 1,000 mg (2 x 500 mg) PO BEDTIME 02/12/24 release 24 hr 30 days #60 tabs famotidine 40 mg tablet 40 mg PO DAILY 30 days #30 tabs 02/12/24 lactulose 20 gram/30 mL oral 20 g (30 mL) PO DAILY 4 days #120 02/12/24 solution mL levocarnitine 500 mg tablet 500 mg PO DAILY 30 days #30 tabs 02/12/24 (L-Carnitine) nicotine 21 mg/24 hr daily 21 mg transdermal DAILY PRN 02/12/24 transdermal patch smoking cessation 28 days #28 ea olanzapine 5 mg tablet 5 mg PO TID PRN agitation 30 days 02/12/24 #30 tabs trazodone 50 mg tablet 50 mg PO BEDTIME PRN Insomnia 30 02/12/24 days #30 tabs Mental Status Exam Mental Status Exam Narrative: Pt is alert and oriented; behavior is cooperative, friendly and calm, somewhat exuberant but this seems like baseline; patient is not in distress; dressed in casual attire with adequate hygiene; mood is described as good and affect congruent, bright; eye contact appropriate; Speech is verbose but not really pressured, normal volume and prosody; no psychomotor agitation/retardation present; thought process is organized and goal directed, though can be a little circumstantial; Thought content is on discharge, aftercare, tx; otherwise pertinent to relevant topics and without any delusional content, paranoid ideations or grandiosity; denies any SI/HI. There is no evidence of perceptual disturbance. Patients insight and judgment is fair. Data Data Completed and Pending Completed studies during hospitalization [Text1]: 02/07/24 02/07/24 02/10/24 06:18 07:35 08:45 WBC 9.5 RBC 4.35 Hgb 13.7 Hct 40.9 MCV 94.0 MCH 31.5 MCHC 33.5 RDW 12.6 Plt Count 324 MPV 9.5 Immature Gran % (Auto) 0.3 Neut % (Auto) 74.4 H Lymph % (Auto) 16.8 L Smith % (Auto) 4.9 Eos % (Auto) 3.1 Baso % (Auto) 0.5 Lymph # (Auto) 1.6 Smith # (Auto) 0.5 Eos # (Auto) 0.3 Baso # (Auto) 0.1 Abs Immat Gran (auto) 0.03 Absolute Neuts (auto) 7.1 Absolute Nucleated RBC 0.000 Nucleated RBC % (auto) 0.0 Sodium 138 140 Potassium 3.9 3.9 Chloride 107 109 H Carbon Dioxide 21 L 25 Anion Gap 14 10 L BUN 9 10 Creatinine 0.69 0.69 Estim Creat Clear Calc 115.0 115.0 Estimated GFR > 60 > 60 Random Glucose 135 H 79 Estimat Average Glucose Hemoglobin A1c % Calcium 9.4 9.6 Total Bilirubin 0.4 0.3 AST 20 17 ALT 17 17 Alkaline Phosphatase 41 38 L Ammonia 82 H Total Protein 7.5 7.3 Albumin 4.5 4.4 Triglycerides 39 Cholesterol 145 LDL Cholesterol, Calc 91 HDL Cholesterol 47 TSH 1.31 Urine Color Yellow Urine Appearance Cloudy Urine pH 6.0 Ur Specific [place] >= 1.030 H Urine Protein Trace Urine Glucose (UA) Negative Urine Ketones 15 Urine Blood Negative Urine Nitrite Negative Ur Leukocyte Esterase Negative Urine Test NEGATIVE Urine Opiates Screen Not Detected Ur Buprenorphine Scrn Not Detected Ur Oxycodone Screen Not Detected Urine Methadone Screen Not Detected Urine Fentanyl Screen Not Detected Ur Barbiturates Screen Not Detected Valproic Acid Ur Phencyclidine Scrn Not Detected Ur Amphetamines Screen Not Detected U Benzodiazepines Scrn Not Detected Urine Cocaine Screen Not Detected U Marijuana (THC) Screen POSITIVE H Ethyl Alcohol < 10 02/10/24 08:46 WBC RBC Hgb Hct MCV MCH MCHC RDW Plt Count MPV Immature Gran % (Auto) Neut % (Auto) Lymph % (Auto) Smith % (Auto) Eos % (Auto) Baso % (Auto) Lymph # (Auto) Smith # (Auto) Eos # (Auto) Baso # (Auto) Abs Immat Gran (auto) Absolute Neuts (auto) Absolute Nucleated RBC Nucleated RBC % (auto) Sodium Potassium Chloride Carbon Dioxide Anion Gap BUN Creatinine Estim Creat Clear Calc Estimated GFR Random Glucose Estimat Average Glucose 91 Hemoglobin A1c % 4.8 Calcium Total Bilirubin AST ALT Alkaline Phosphatase Ammonia Total Protein Albumin Triglycerides Cholesterol LDL Cholesterol, Calc HDL Cholesterol TSH Urine Color Urine Appearance Urine pH Ur Specific [place] Urine Protein Urine Glucose (UA) Urine Ketones Urine Blood Urine Nitrite Ur Leukocyte Esterase Urine Test Urine Opiates Screen Ur Buprenorphine Scrn Ur Oxycodone Screen Urine Methadone Screen Urine Fentanyl Screen Ur Barbiturates Screen Valproic Acid 79.8 Ur Phencyclidine Scrn Ur Amphetamines Screen U Benzodiazepines Scrn Urine Cocaine Screen U Marijuana (THC) Screen Ethyl Alcohol DS: Summary Hospital Course Hospital Course: Patient is a 28-year-old biological female (they/them) with history of bipolar disorder, who presents just a few days after recently discharged from on 02/04, who presents with scott and unsafe behaviors in the community. On approach, patient is hyperverbal, hyperactive and exuberant. Patient says she does not want to be on the unit and refuses to sign in voluntarily. Lithographic Etcher asked why patient returned to the hospital to which patient answers.. I do not know... Lithographic Etcher explained that it was reported that patient tried to jump out of their mother's moving car to which patient said well that is true... [place] the rotary... But it was because I was trying to show her something [on a piece of paper... about therapist and wanting to see her friend]... Lithographic Etcher said that that sounds unsafe to which patient again replied yea it was... The police showed up and helped me. Regarding medications however patient enthu siastically wants to continue on the same medications patient was on prior to discharge which commercial underwriter confirms as Abilify and Depakote. Patient remains hyperverbal, dancing around and unable to engage in a productive way any further. Alludes to . Formulation/clinical reasoning: Patient is manic and demonstrating that she is unable to keep herself safe in the community. Patient requires inpatient hospitalization. Currently she refuses to sign in; thankfully she is willing to take mood stabilizing medications though current medication regimen has not yet proven effective. Hopefully patient will be willing to sign herself in; otherwise will very likely need to file for involuntary commitment for patient's safety Hospital course: 02/08 Last night patient got momentarily dysregulated and screamed while running down the hallway; she apologized afterwards. Patient remains easily emotionally provoked and can get dysregulated however she is trying hard to regulate herself and is quick to apologize for outbursts. She is overall more consistently logical and is demonstrated improved insight and judgment, though it remains with significant limitations and she does not yet grasp the dangerousness of her behaviors in the community i.e. jumping out of a moving car. Although she very much wants to discharge patient was able to agree that she needs further me dication management on the unit in order to remain stable as an outpatient. Patient signed herself in on a CV, demonstrating significantly improved insight. Patient's mother visited and there was a family meeting which patient later said was very difficult for her and frustrating however commercial underwriter felt patient handled herself quite well and kept herself in good behavioral and impulse control. Mom reported that it was very scary when patient jumped out of the moving car and is grateful that she had slow down; she said that once patient was out of the car she started trying to get into other people's cars as they were passing by. Only took half Depakote dose; patient was unaware of this and agreed to make up the dose today and continue with prescribed dose 02/09 Patient doing much better, although still distracted and circumstantial, overall logical and organized in speech and behavior. Understands diagnosis which was discussed at length. Understands treatment issues, needs for medication which she agrees with and wants to continue. Patient shared that she has embarrassed by her past behaviors and way she talk to staff; she has been apologizing. Patient is worried that being on the unit too much longer will start to become counterproductive as the unit is triggering. -patient does have some remaining hypomanic behaviors; however patient may also have ADHD and have dramatically flare at baseline, something she professes to; some consideration given to schizotypal personality disorder. Despite remaining hypomanic symptoms, patient is overall organized in speech and behavior. Discussed elevated ammonia, causes, risks; patient is not having any current side effects. Patient adamantly advocated that she remain on current dose since she is very afraid of becoming manic again. She says she will follow up with outpatient providers and have levels monitored but since it does not seem to be causing a problem now, wants it left as it is. -discussing with colleagues 02/10 Patient remains much improved; Patient politely but adamantly requests discharge, feeling stable, back to her regular self and optimistic about remained stable. She is thankful for help received and feels she will be able to remain stable. While patient perhaps has some residual hypomania she remains in good behavioral and impulse control; she is logical and linear in thought process and organized in speech and behavior (and it is possible that some of this perceived hypomania is in fact a combination of ADHD and patient's natural exuberance). Patient understands her medical illness and need for medication. Discussed managing hyperammonemia and patient agrees to take lactulose; she also agrees to have ammonium monitor outpatient commercial underwriter. Lithographic Etcher unable to get a hold of this person at since it has not been assigned. Also discussed starting L carnitine supplement and reviewed reasons for and potential risks/side effects of this medication. Patient fully understands and agrees to medication plan. Reviewed risks/side effects of Depakote which patient understands, including that it is a teratogen. Lithographic Etcher agrees the patient is appropriate to return to the community for treatmen t. She has demonstrated good insight and judgment and understands both her illness and treatment well. Patient is not in imminent risk for harm to self or others and request for discharge honored. Medications: Continue Abilify 20 mg daily Continue Depakote ER 1000 mg q.h.s. Lactulose 20 mg for 4 days L carnitine 500 mg daily Status at Discharge Functional status at discharge: independent ambulation Overall status at discharge: patient is back to baseline Time Spent with Patient Time attestation: Total time managing care of this patient today 45____ minutes. Time spent: Greater than 30 minutes Specific discharge activities: Met with patient; discussed with team; prescriptions; charting Discharge Plan Discharge Anticipated Discharge Date/Time: 02/12/24 11:30 Patient Disposition: Home, Self-Care Discharge Diagnosis: Bipolar I, recurrent, severe Referrals: Clinical and Support Options Intake with Jennifer [Other] - 02/19/24 3:00 pm (This is an intake for therapy, psychiatry and case management. ) [facility] Partial Hospitalization [Other] - 1 Week (Here is information for you to follow up on when/if you feel ready.) Annalise Ortez NP [Nurse Practitioner] - 02/18/24 10:00 am (in office visit) Discharge Medications: New nicotine 21 mg/24 hr Patch 24 Hour 21 mg transdermal DAILY PRN (Reason: smoking cessation) 28 Days Qty: 28 0RF divalproex 500 mg Tablet Extended Release 24 Hr 1,000 mg PO BEDTIME 30 Days Qty: 60 0RF olanzapine 5 mg Tablet 5 mg PO TID PRN (Reason: agitation) 30 Days Qty: 30 0RF trazodone 50 mg Tablet 50 mg PO BEDTIME PRN (Reason: Insomnia) 30 Days Qty: 30 0RF lactulose 20 gram/30 mL solution 20 g PO DAILY 4 Days Qty: 120 0RF L-Carnitine 500 mg tablet 500 mg PO DAILY 30 Days Qty: 30 0RF Rx Instructions: must administer with a meal/food Continued nicotine (polacrilex) 4 mg gum 4 mg buccal Q2H PRN (Reason: nicotine cravings) 30 Days Qty: 100 0RF hydroxyzine HCl 50 mg Tablet 50 mg PO QID PRN (Reason: Anxiety) 30 Days Qty: 60 0RF aripiprazole 20 mg Tablet 20 mg PO DAILY 30 Days Qty: 30 0RF famotidine 40 mg Tablet 40 mg PO DAILY 30 Days Qty: 30 0RF Discontinued divalproex 250 mg Tablet Extended Release 24 Hr 750 mg PO BEDTIME 30 Days Qty: 90 0RF Discharge Orders: Discharge Order (Routine); Ordered 02/12/24 Ordered By: Warner Gay Diet: Regular diet Activity on Discharge: As tolerated Stand Alone Forms: Patient Portal Discharge page, Community Support Print Language: Kyrgyz Care Plan Goals: Maintain mood and safe behaviors Take medications as prescribed Practice coping skills Continue with outpatient providers and reach out to them as needed Health Concerns: Mood stability and behaviors Plan of Treatment: Follow up with your PCP, psychiatric provider and other outpatient providers regarding above concerns Take medications as prescribed Assessment: Risk assessment at time of discharge:? Patient was interviewed prior to discharge and found to be fully oriented and without any SI or HI. Patient has improved insight and judgment and wants to continue treatment. Patient is not in imminent risk of harm to self or others and has a safety plan that includes presenting to the closest ER or calling 911 if feeling unsafe.? Patient has been observed closely by nursing and unit staff throughout admission; patient has not engaged in any behaviors that suggest dangerousness to self or others and has demonstrated appropriate behaviors and impulse control Discharge Date/Time: 02/12/24 11:30
[2024-02-12] MEDS: Nicotine Polacrilex 2 MG GUM 4 MG BUCCAL (09:03)
== END 2024-02-12 11:30 | disposition home or self-care (01) | DRG 753 ==
LOC: HO.ED 15:48 → HO.PM5 02-07 14:05
PROVIDERS: Physician Assistant Medical; Admitting Provider Psychiatry & Neurology Psychiatry; Emergency Provider Student in an Organized Health Care Education/Training Program; Visit Provider Psychiatry & Neurology Psychiatry
DX: F31.9 Bipolar disorder, unspecified (principal); F17.210 Nicotine dependence, cigarettes, uncomplicated; Z71.6 Tobacco abuse counseling; Z79.899 Other long term (current) drug therapy
CPT/HCPCS: 36415; 80053; 80061; 80164; 80307; 81003; 81025; 82140; 83036; 84443; 85025; 93005; 99285; S9485

== ENCOUNTER → 2024-02-07 13:57 | Outpatient (BNV) | payer OTHER, SELFPAY | PROVIDERS: Admitting Provider Psychiatry & Neurology Psychiatry; Emergency Provider Student in an Organized Health Care Education/Training Program; Visit Provider Psychiatry & Neurology Psychiatry | DX: F31.13 Bipolar disorder, current episode manic without psychotic features, severe (principal) | CPT/HCPCS: 90792; 99232; 99239 ==

== ENCOUNTER 2024-03-09 09:00 | Outpatient (RCR) | payer OTHER, SELFPAY ==
--- NOTE | 2024-03-09 11:06 | PC.NURSE ---
Patient came to my office stating this is not the right program for her. Stated she does not want to be here and this is not what she thought it would be. Stated she cant sit in a chair for hours and prefers individual therapy instead of group therapy. She also stated she needs to get a job and is currently living with her mother. She felt that the program was making her more anxious and is not going to work for her. She stated she has a lot going on. She stated she has a psychiatrist appointment at [facility] on 03/17/24. She reports she is taking her medications as prescribed and has an appointment for her injectable medication coming up. Patient is alert and oriented x4. She presented with anxious mood and affect, tearful at times. She denied SI. She apologized for not continuing the program. She did not want to stay and complete the day. Does not want to meet with Dr. Stewart via telehealth. She asked if she could leave now. I told her this is a voluntary program and she could leave now if she wants to. She called her grandmother who is coming to pick her up from the program. She did agree to meet with Peggy before her grandmother picks her up to complete discharge from the program.
--- NOTE | 2024-03-09 12:49 | HO.PHP ---
Cathi showed apprehension in the first group that this program was the right fit for her. She has done PHP in the past, and she is more interested in case management services and obtaining employment. She met with the [facility] nursing staff after this discussion, and she stated that this is not what she needs right now, as she has other things that need to take priority. The [facility] nurse directed her to a [facility] clinician who went over discharge and assessed for safety concerns. No concerns were reported. She left the program after meeting with [facility] staff.
--- NOTE | 2024-03-09 14:57 | HO.PHP ---
[facility] staff was going to obtain an initial authorization but was told by after school program director it was not needed because she did not stay for the day.
== END 2024-03-09 23:59 | disposition home or self-care (01) ==
LOC: HO.PHPA 09:00
PROVIDERS: Visit Provider Psychiatry & Neurology Psychiatry
DX: F31.2 Bipolar disorder, current episode manic severe with psychotic features (principal)
CPT/HCPCS: 90791